=== PATIENT | male | born 1960 | race Caucasian/White ===

== ENCOUNTER 2017-07-11 12:07 | Observation (INO) ==
[2017-07-11] MEDS ORDERED: Ipratropium/Albuterol Neb 3 ML IH ONE ×2 (12:32→12:34)
--- NOTE | 2017-07-11 12:32 | Emergency Department Note ---
Disposition Clinical Impression: Shortness of breath Disposition: Admitted As Inpatient Condition: Fair Instructions: Dyspnea (ED) Referrals: NONE,PCP [Primary Care Provider] - Time of Disposition: 14:00 SOB HPI - General Stated Complaint: Shortness of breath Time Seen by Provider: 07/11/17 12:20 Source: patient, EMS Limitations: no limitations Nursing Notes Reviewed: Yes Vital Signs Reviewed: Yes - History of Present Illness 3 weeks ago Mr. Morales received Levaquin for some sinus symptoms by his family doctor. It cleared up but for the last week or so he has had a productive cough and progressive shortness of breath. He quit smoking 5 years ago on COPD was diagnosed. He is on 4 L of oxygen at home all the time. No fever no chills. He does have a lot of fatigue. No nausea no vomiting or diarrhea. By mouth intake is normal. He does not feel as though his legs of swollen any more than usual. He felt better after the DuoNeb during the squad ride to [facility]. - Related Data Home Medications Medication Instructions Recorded Confirmed Amiodarone [Cordarone] 200 mg PO DAILY 04/03/15 07/11/17 Atorvastatin Calcium [Lipitor] 80 mg PO DAILY 04/03/15 07/11/17 Fluticasone Propionate Nasal 50 mcg NS DAILY 04/03/15 07/11/17 [Flonase] Multivitamin/Ferrous Sulfate 1 tab PO DAILY 04/03/15 07/11/17 [One-Daily Cpona-Rnz-Ugxw Tab] Fluticasone/Salmeterol [Advair Hfa 1 puff IH BID 04/04/16 07/11/17 45-21 Mcg Inhaler] Potassium Chloride [Klor-Con 10] 20 meq PO DAILY 04/04/16 07/11/17 Warfarin [Coumadin] 5 mg PO MOTUWETHFRSA 04/04/16 07/11/17 Warfarin [Coumadin] 7.5 mg PO DREW 06/09/16 07/11/17 Albuterol Neb [Proventil Neb] 2.5 mg IH Q6H PRN 11/11/16 07/11/17 Ammonium Lactate 1 appl TP BID 11/11/16 07/11/17 Oxygen 4 l IH AD 11/11/16 07/11/17 Furosemide [Lasix] 40 mg PO BID 07/11/17 07/11/17 Previous Rx's Medication Instructions Recorded Albuterol Neb [Proventil Neb] 2.5 mg IH Q4HR PRN 14 Days 04/06/16 vial.neb Citalopram [CeleXA] 40 mg PO DAILY #20 tablet 04/27/16 Allergies Allergy/AdvReac Type Severity Reaction Status Date / Time No Known Drug Allergies Allergy See Verified 11/11/16 11:28 Comments Constitutional: Denies: fever, chills ENT ED: Denies: congestion Cardiovascular: Reports: dyspnea on exertion. Denies: chest pain, palpitations Respiratory: Reports: cough, dyspnea, sputum production Gastrointestinal: Denies: nausea, vomiting, diarrhea Musculoskeletal: Denies: myalgia Neurological: Denies: headache Endocrine: Reports: fatigue Past Medical History - Past Medical History Medical history: Reports: atrial fibrillation, CHF, COPD, other Surgical history: Reports: pacemaker/AICD Psychiatric history: Reports: anxiety, depression - Social History Smoking Status: Former smoker Smokeless Tobacco Status: No Alcohol use: Reports: none Drug use: Reports: none Physical Exam - General Limitations: no limitations General appearance: alert, in no apparent distress - Head Head exam: atraumatic, normocephalic - Eye Eye exam: Absent: scleral icterus - ENT ENT exam: normal exam, normal oropharynx, mucous membranes moist, TM's normal bilaterally, normal external ear exam - Neck Neck exam: Present: normal inspection. Absent: lymphadenopathy - Chest Chest inspection: Present: normal inspection, symmetric chest wall rise, other ( Bilateral crackles bilateral bases do not clear with coughing) - Respiratory Respiratory exam: Present: wheezes (End expiratory wheezes bilaterally symmetrically), other (He is able to speak in full sentences). Absent: accessory muscle use - Cardiovascular Cardiovascular exam: Present: regular rate, normal rhythm, normal heart sounds. Absent: systolic murmur, diastolic murmur - Abdominal Exam Abdominal exam: Present: soft, other (Obese) - Extremities Exam Extremities exam: Present: pedal edema (Chronic erythema 1+ pitting edema bilaterally). Absent: calf tenderness (no calf Edema cord or erythema) - Neurological Exam Neurological exam: Present: alert, oriented X3 - Psychiatric Psychiatric exam: Present: normal affect, normal mood - Skin Skin exam: Present: erythema Course Vital Signs Temperature 99.1 F 07/11/17 12:14 Pulse Rate 83 07/11/17 12:14 Respiratory Rate 20 07/11/17 12:14 Blood Pressure 115/69 07/11/17 12:14 O2 Sat by Pulse Oximetry 95 07/11/17 12:14 Temperature 99.1 F 07/11/17 12:14 Pulse Rate 83 07/11/17 12:14 Respiratory Rate 20 07/11/17 12:14 Blood Pressure 115/69 07/11/17 12:14 O2 Sat by Pulse Oximetry 95 07/11/17 12:14 Oxygen Delivery Oxygen Delivery Nasal Cannula Shortness of Breath/Dyspnea - [facility] Narrative Medical decision making narrative: Shortness of breath. Chart review demonstrates similar clinical picture last October where over 10 L was diuresed. Review of most recent echocardiogram does not demonstrate terribly compromised function. He also has an element of reactive airways. He did improve after 3 DuoNeb's. He did have some hypoxia before diuresis in an additional 3 albuterol nebulized treatments into the high 80s. He did not demonstrate any respiratory distress. Saturations did rebound to the mid 90s after these measures were taken. He had 800 mL out just prior to admission. Mr. Moralse is opened to staying at [place]. I spoke with the covering hospitalist and presented the case. He accepted admission. Mr. Morales is in improved condition awaiting for transfer. Disposition known at 2 PM however quality improvement analyst exercise in lab today where chemistries were in question. I did not want to keep him here [place] if chemistries could not be obtained in this patient that I plan to diurese. Labs did return resulted and are now up and running. I did speak to Mr. Morales about possibility of intubation should his condition deteriorate. He has been intubated before and has elected to go through with this procedure if needed. - Medical Records Medical records reviewed: Yes I reviewed the patient's medical records. - Lab Data Lab results reviewed: Yes I reviewed the patient's lab results. Result diagrams: 07/11/17 12:51 07/11/17 12:51 Lab Results 07/11/17 07/11/17 07/11/17 Range/Units 12:51 12:51 12:51 WBC 7.6 (4.3-11.1) K/mcL RBC 3.97 L (4.19-5.50) M/mcL Hgb 10.4 L (12.9-16.9) g/dL Hct 36.7 L (37.5-50.1) % MCV 92.4 (83.0-100.0) fL MCH 26.2 L (28.0-33.3) pg MCHC 28.3 L (31.6-35.5) g/dL RDW 14.5 (11.5-14.5) % Plt Count 168 (140-400) K/mcL MPV 9.7 (9.4-12.4) fL Immature Gran % 0.7 (0-4) % Seg Neutrophils % 80.8 % Lymphocytes % 8.8 % Monocytes % 8.6 % Eosinophils % 0.8 % Basophils % 0.3 % Neutrophils # 6.2 (1.6-8.9) K/mcL Lymphocytes # 0.7 (0.6-4.6) K/mcL Monocytes # 0.7 (0.0-1.3) K/mcL Eosinophils # 0.1 (0.0-0.6) K/mcL Basophils # 0.0 (0.0-0.2) K/mcL PT (9.4-12.1) Seconds INR APTT (26.0-36.0) Seconds D-Dimer < 138 (0-500) ng/mLFEU Sodium 144 (136-145) mEq/L Potassium 4.2 (3.5-5.1) mEq/L Chloride 94 L (98-107) mEq/L Carbon Dioxide 47 H* (23-29) mEq/L BUN 16 (6-20) mg/dL Creatinine 0.87 (0.70-1.30) mg/dL Est GFR ( Amer) > 60 (> 60) Est GFR (Non-Af Amer) > 60 (> 60) BUN/Creatinine Ratio 18 (6-26) Glucose 105 (70-105) mg/dL Calculated Osmolality 300 (280-300) Calcium 8.8 (8.6-10.3) mg/dL Magnesium 2.2 (1.6-2.6) mg/dL Total Bilirubin 0.6 (0.3-1.0) mg/dL AST 20 (13-39) Units/L ALT 18 (7-52) Units/L Alkaline Phosphatase 81 (34-104) Units/L Troponin I (< 0.04) ng/mL B-Natriuretic Peptide (Less than 100) pg/mL Serum Total Protein 6.3 L (6.4-8.9) g/dL Albumin 3.2 L (3.5-5.7) g/dL Globulin 3.1 (2.4-3.5) g/dL Albumin/Globulin Ratio 1.0 L (1.1-2.2) 07/11/17 07/11/17 07/11/17 Range/Units 12:51 12:51 12:59 WBC (4.3-11.1) K/mcL RBC (4.19-5.50) M/mcL Hgb (12.9-16.9) g/dL Hct (37.5-50.1) % MCV (83.0-100.0) fL MCH (28.0-33.3) pg MCHC (31.6-35.5) g/dL RDW (11.5-14.5) % Plt Count (140-400) K/mcL MPV (9.4-12.4) fL Immature Gran % (0-4) % Seg Neutrophils % % Lymphocytes % % Monocytes % % Eosinophils % % Basophils % % Neutrophils # (1.6-8.9) K/mcL Lymphocytes # (0.6-4.6) K/mcL Monocytes # (0.0-1.3) K/mcL Eosinophils # (0.0-0.6) K/mcL Basophils # (0.0-0.2) K/mcL PT 24.2 H (9.4-12.1) Seconds INR 2.2 APTT 41.4 H (26.0-36.0) Seconds D-Dimer (0-500) ng/mLFEU Sodium (136-145) mEq/L Potassium (3.5-5.1) mEq/L Chloride (98-107) mEq/L Carbon Dioxide (23-29) mEq/L BUN (6-20) mg/dL Creatinine (0.70-1.30) mg/dL Est GFR ( Amer) (> 60) Est GFR (Non-Af Amer) (> 60) BUN/Creatinine Ratio (6-26) Glucose (70-105) mg/dL Calculated Osmolality (280-300) Calcium (8.6-10.3) mg/dL Magnesium (1.6-2.6) mg/dL Total Bilirubin (0.3-1.0) mg/dL AST (13-39) Units/L ALT (7-52) Units/L Alkaline Phosphatase (34-104) Units/L Troponin I < 0.03 (< 0.04) ng/mL B-Natriuretic Peptide 49 (Less than 100) pg/mL Serum Total Protein (6.4-8.9) g/dL Albumin (3.5-5.7) g/dL Globulin (2.4-3.5) g/dL Albumin/Globulin Ratio (1.1-2.2) - Radiology Data Radiology results reviewed: Yes I reviewed the patient's radiology results. - EKG Data EKG attestation: Yes I reviewed and interpreted this EKG. EKG results narrative: EKG as interpreted by me paced rhythm 83 beats per minutes. There are Q waves in V1 and V2. No T-wave abnormalities. No ST elevations or depressions. No evidence of hypertrophy. EKG is similar appearance to October 2016.
[2017-07-11] MEDS ORDERED: Furosemide 40 MG/4 ML VIAL IVP ONE ×2 (12:57→13:57)
[2017-07-11 13:19] LABS: Basophils % 0.3 %; Eosinophils # 0.1 K/mcL (0.0-0.6); Eosinophils % 0.8 %; Hematocrit 36.7 % (37.5-50.1); Hemoglobin 10.4 g/dL (12.9-16.9); Immature Granulocytes % 0.7 % (0-4); Lymphocytes # 0.7 K/mcL (0.6-4.6); Lymphocytes % 8.8 %; Mean Corpuscular HGB Conc 28.3 g/dL (31.6-35.5); Mean Corpuscular Hemoglobin 26.2 pg (28.0-33.3); Mean Corpuscular Volume 92.4 fL (83.0-100.0); Mean Platelet Volume 9.7 fL (9.4-12.4); Monocytes # 0.7 K/mcL (0.0-1.3); Monocytes % 8.6 %; Neutrophils # 6.2 K/mcL (1.6-8.9); Platelet Count 168 K/mcL (140-400); Red Blood Count 3.97 M/mcL (4.19-5.50); Red Cell Distribution Width 14.5 % (11.5-14.5); Segmented Neutrophils % 80.8 %
[2017-07-11 14:20] LABS: INR 2.2; Prothrombin Time 24.2 Seconds (9.4-12.1)
[2017-07-11] MEDS ORDERED: Albuterol 2.5 MG/3 ML NEBULIZER IH ONE ×3 (14:20→14:21)
[2017-07-11 14:22] LABS: Activated Partial Thrombo Time 41.4 Seconds (26.0-36.0)
[2017-07-11 14:59] LABS: Alanine Aminotransferase 18 Units/L (7-52); Albumin 3.2 g/dL (3.5-5.7); Alkaline Phosphatase 81 Units/L (34-104); Aspartate Amino Transferase 20 Units/L (13-39); BUN/Creatinine Ratio 18 (6-26); Bilirubin,Total 0.6 mg/dL (0.3-1.0); Blood Urea Nitrogen 16 mg/dL (6-20); Calcium 8.8 mg/dL (8.6-10.3); Carbon Dioxide 47 mEq/L (23-29); Chloride 94 mEq/L (98-107); Globulin 3.1 g/dL (2.4-3.5); Glucose 105 mg/dL (70-105); Magnesium 2.2 mg/dL (1.6-2.6); Osmolality,Calculated 300 (280-300); Potassium 4.2 mEq/L (3.5-5.1); Sodium 144 mEq/L (136-145); Total Protein 6.3 g/dL (6.4-8.9); eGFR For Non-African Americans > 60 (> 60)
[2017-07-11] MEDS ORDERED: *HR* Warfarin 5 MG TABLET PO SCH (15:47)
[2017-07-11] MEDS ORDERED: Albuterol 2.5 MG/3 ML NEBULIZER IH PRN (15:47)
[2017-07-11] MEDS ORDERED: Naloxone 0.4 MG/ML INJ IVP PRN (15:47)
[2017-07-11] MEDS ORDERED: NON-FORMULARY MEDICATION 1 EACH EACH (Oxygen [Oxygen] 4 L) IH SCH (15:47)
[2017-07-11] MEDS ORDERED: D5% in Water 1,000 ML IVC PRN (17:13)
[2017-07-11] MEDS ORDERED: *HR* Dextrose 50 % in Water (Syg) 50 ML SYRINGE IVP PRN (17:13)
[2017-07-11] MEDS ORDERED: Dextrose Gel 15 GM/37.5 ML TUBE PO PRN ×2 (17:13)
[2017-07-11] MEDS: Furosemide 40 MG/4 ML VIAL IVP SCH ×2 (17:38→22:12)
[2017-07-11] MEDS: Ipratropium Neb 0.5 MG NEBULIZER IH SCH ×3 (17:39→22:13)
[2017-07-11] MEDS: *HR* Warfarin 5 MG TABLET PO SCH (17:43)
[2017-07-11] MEDS: Ammonium Lactate 30 APPL/225 GM BOTTLE TP SCH (22:11)
[2017-07-11] MEDS: Insulin LISPRO 300 UNITS/3 ML VIAL SQ SCH (22:12)
[2017-07-12] MEDS: methylPREDNISolone 125 MG/2 ML VIAL IVP SCH ×3 (00:14→17:36)
[2017-07-12 05:46] LABS: Basophils % 0.2 %; Hematocrit 39.3 % (37.5-50.1); Hemoglobin 11.3 g/dL (12.9-16.9); Lymphocytes # 0.5 K/mcL (0.6-4.6); Lymphocytes % 8.4 %; Mean Corpuscular HGB Conc 28.8 g/dL (31.6-35.5); Mean Corpuscular Hemoglobin 26.5 pg (28.0-33.3); Mean Platelet Volume 9.3 fL (9.4-12.4); Monocytes # 0.2 K/mcL (0.0-1.3); Monocytes % 3.2 %; Neutrophils # 5.1 K/mcL (1.6-8.9); Platelet Count 167 K/mcL (140-400); Red Blood Count 4.27 M/mcL (4.19-5.50); Red Cell Distribution Width 14.4 % (11.5-14.5); Segmented Neutrophils % 87.2 %
[2017-07-12 05:47] LABS: INR 2.5; Prothrombin Time 27.1 Seconds (9.4-12.1)
[2017-07-12] MEDS: Furosemide 40 MG/4 ML VIAL IVP SCH ×4 (06:10→22:16)
[2017-07-12 06:11] LABS: BUN/Creatinine Ratio 21 (6-26); Blood Urea Nitrogen 18 mg/dL (6-20); Calcium 9.1 mg/dL (8.6-10.3); Chloride 89 mEq/L (98-107); Glucose 156 mg/dL (70-105); Osmolality,Calculated 303 (280-300); Potassium 4.7 mEq/L (3.5-5.1); Sodium 144 mEq/L (136-145); eGFR For Non-African Americans > 60 (> 60)
[2017-07-12] MEDS: Ipratropium Neb 0.5 MG NEBULIZER IH SCH ×5 (06:11→22:21)
[2017-07-12 06:14] LABS: Carbon Dioxide 52 mEq/L (23-29)
[2017-07-12 07:46] LABS: ABG Base Excess 19 mEq/L (-2 to 3); ABG HCO3 50 mEq/L (21-27); ABG Oxygen Saturation 92 % (95-98); ABG PCO2 94 mmHg (35-45); ABG PH 7.33 pH Units (7.32-7.45); ABG PO2 76 mmHg (85-104); ABG TCO2 52 mEq/L (20-26)
[2017-07-12] MEDS: Insulin LISPRO 300 UNITS/3 ML VIAL SQ SCH ×4 (08:54→22:22)
--- NOTE | 2017-07-12 09:39 | Internal Med History&Physical ---
Date of Encounter: 07/12/17 Time of Encounter: 09:36 Assessment and Plan (1) Acute exacerbation of chronic obstructive airways disease Current visit: No Status: Resolved I believe that this is his primary problem and that he should be treated with steroids, given the severity of his chronic problem. I also think he should be maintained on antibiotics for Community-Acquired Pneumonia. (2) CHF (congestive heart failure) Current visit: No Status: Chronic His BNP is normal and clinically, he's been compliant with his medications. I believe this is controlled and not a major contributor to his current COPD exacerbation. Qualifiers: Heart failure type: combined systolic and diastolic Qualified Code(s): I50.42 - Chronic combined systolic (congestive) and diastolic (congestive) heart failure (3) Atrial fibrillation Current visit: No Status: Chronic In sinus rhythm to exam and telemetry. Will monitor for 24 hours more and consider discontinuation of telemetry, tomorrow. He's on chronic Coumadin therapy for same. PT/INR therapeutic Qualifiers: Atrial fibrillation type: chronic Qualified Code(s): I48.2 - Chronic atrial fibrillation (4) GITA (obstructive sleep apnea) Current visit: No Status: Chronic I spoke with brian at great length about the long-term effects (including ) of not caring for this. I explained the difficulties with tolerating this and the need to optimize treatment vs. risk of hypercarbia, respiratory or heart failure, intubation and tracheostomy, etc. He accepts and agrees to try again. I tried to motivate him with feeling better, longer life for , children, grandchildren. (5) Morbid obesity due to excess calories Current visit: No Status: Chronic He understands contribution of this problem, as well. (6) Respiratory acidosis Current visit: No Status: Acute Chronic and compensated. We will try to avoid progression and could consider metabolic therapy but I feel CPAP/ BiPAP treatment to curtail hypercapnia is best. Internal Medicine - H&P: HPI Chief complaint: Cough Admitted From: Home Plans for Post Hospital Care: Home History of present illness: Mr. Morales is a 56 year old male with a longstanding history of COPD with chronic oxygen therapy, CO2 retention, non-compliance with BiPAP for GITA, congestive heart failure, and atrial fibrillation who was in his usual state of health until aboiut two weeks ago when he began to have more sinus congestion and cough. This progressed and he was prescribed an unknown antibiotic by his PCP (Dr. Medellin, [place]). He continued to have worsening cough and shortness of breath. Yesterday, this cough become more frequent, he bagan to produce light-green phlegm, and he had more dyspnea. He presented to [facility] ED and was felt to have a COPD exacerbation with CHF by CXR so he was admitted for acute management. He denies fevers, chills, or sweats. As above, he's had more sinus congestion and states this is typical - - he gets frequent sinus congestion and/or sinusitis. He denies pharyngitis, hemoptysis, etc. There has been no chest pain or pressure. ROS is otherwise unremarkable -- see below. He has tried to but cannot tolerate his CPAP. The best was a nasal mask but even that he couldn't keep uon at night. This is true because he gets up frequently to urinate -- he takes his diuretic medication at about 1700. Before he began to be treated with CPAP, he was reasonably thin -- he's gained lots of weight since then and since he quit smoking -- about 5 years ago. His atrial fibrillation has been well controlled with no recent episodes. Past Med Surg Social Fam HX - Past Medical History Medical history: atrial fibrillation, CHF, COPD, other Psychiatric history: anxiety, depression - Past Surgical History Surgical History: pacemaker/AICD - Social History Smoking Status: Former smoker Smokeless Tobacco Status: No Alcohol use: none Drug use: none - Family History Mother Family Member Ethnicity: Non- Living Status: Still Living Hx Family Cardiac Disorders: No Hx Family Respiratory Disorders: No Hx Family Cancer: Yes Hx Family GI Disorders: No Hx Family Endocrine Disorder: No Father Adopted: No Family Member Ethnicity: Non- Living Status: Hx Family Cancer: Yes Hx Family GI Disorders: No Internal Medicine - H&P: Meds Amiodarone [Cordarone] 200 mg PO DAILY 04/03/15 [History] Atorvastatin Calcium [Lipitor] 80 mg PO DAILY 04/03/15 [History] Fluticasone Propionate Nasal [Flonase] 50 mcg NS DAILY 04/03/15 [History] Multivitamin/Ferrous Sulfate [One-Daily Eqove-Ydd-Qdtd Tab] 1 tab PO DAILY 04/03 [History] Fluticasone/Salmeterol [Advair Hfa 45-21 Mcg Inhaler] 1 puff IH BID 04/04/16 [ History] Potassium Chloride [Klor-Con 10] 20 meq PO DAILY 04/04/16 [History] Warfarin [Coumadin] 5 mg PO MOTUWETHFRSA 04/04/16 [History] Albuterol Neb [Proventil Neb] 2.5 mg IH Q4HR PRN 14 Days vial.neb 04/06/16 [Rx] Citalopram [CeleXA] 40 mg PO DAILY #20 tablet 04/27/16 [Rx] Warfarin [Coumadin] 7.5 mg PO DREW 06/09/16 [History] Albuterol Neb [Proventil Neb] 2.5 mg IH Q6H PRN 11/11/16 [History] Ammonium Lactate 1 appl TP BID 11/11/16 [History] Oxygen 4 l IH AD 11/11/16 [History] Furosemide [Lasix] 40 mg PO BID 07/11/17 [History] 3 Allergy/AdvReac Type Severity Reaction Status Date / Time No Known Drug Allergies Allergy See Verified 11/11/16 11:28 Comments All Systems PM: A 10-system review of systems was performed and is negative for pertinent findings except as documented above in the HPI. - Constitutional Vitals: Temp Pulse Resp BP Pulse Ox 97.9 F 70 16 142/74 95 07/12/17 07:37 07/12/17 07:37 07/12/17 07:37 07/12/17 07:37 07/12/17 07:37 General appearance: Present: A&O X 3, morbidly obese, no acute distress, answers questions appropriately Exam: Eating lunch and shows no difficulty with speaking or eating -- on Oxygen by nasal cannula. - Head Head exam: Present: atraumatic, normal inspection, normocephalic - Eye Eye exam: Present: EOMI, PERRL. Absent: conjunctival injection, nystagmus, scleral icterus Pupils: Present: normal accommodation - ENT ENT exam: Present: mucous membranes moist, normal exam, normal external ear exam , normal oropharynx - Neck Neck exam general surgery: Present: full ROM, normal inspection, supple, trachea midline. Absent: lymphadenopathy, thyromegaly - Respiratory Respiratory exam: Present: wheezes. Absent: accessory muscle use Additional comments: End-expiratory wheezes, diffusely and mild. - Cardiovascular Cardiovascular exam: Present: RRR. Absent: systolic murmur Additional comments: Distant heart sounds. - GI/Abdominal GI/Abdominal exam: Present: normal bowel sounds, soft. Absent: bruit, hepatomegaly, mass, splenomegaly, tenderness Additional comments: Morbidly obese and therefore difficult to alpate briefly. Examined in chair, as well. - Additional comments: Sebastian catheter in place. Not otherwise examined. - Extremities Exam Extremities exam: Present: normal capillary refill. Absent: calf tenderness, mottling Additional comments: Has mild viiolaceous change and 1+ edema consistent with chronic stasis change, bilaterally. - Back Exam Back exam: Absent: CVA tenderness (L), CVA tenderness (R) - Neurological Exam Neurological exam: Present: CN II-XII intact, oriented X3, no focal deficits. Absent: facial droop, speech deficit - Psychiatric Psychiatric exam: Present: normal affect, normal mood - Skin Skin exam: Present: dry, warm. Absent: petechiae, rash Internal Med - H&P Results - Labs CBC & Chem 7: 07/12/17 05:25 07/12/17 05:25 Labs: Short CBC 07/12/17 Range/Units 05:25 WBC 5.9 (4.3-11.1) K/mcL Hgb 11.3 L (12.9-16.9) g/dL Hct 39.3 (37.5-50.1) % Plt Count 167 (140-400) K/mcL Neutrophils # 5.1 (1.6-8.9) K/mcL BMP 07/12/17 05:25 Sodium 144 Potassium 4.7 Chloride 89 L Carbon Dioxide 52 H* BUN 18 Creatinine 0.86 Glucose 156 H Calcium 9.1 Cardiac Enzymes 07/11/17 07/12/17 Range/Units 19:10 00:55 Troponin I < 0.03 < 0.03 (< 0.04) ng/mL - ABG Interpretation ABG results: 07/12/17 07/12/17 07:22 07:40 ABG pH 7.22 L 7.33 ABG pCO2 124 H* 94 H* D ABG pO2 66 L 76 L ABG HCO3 51 H 50 H ABG Total CO2 55 H 52 H ABG O2 Saturation 85 L 92 L ABG Base Excess 18 H 19 H - VTE Reasons for not Prescribing Prophylaxis: Not indicated-Anticoagulated or INR therapeutic
[2017-07-12] MEDS: Ammonium Lactate 30 APPL/225 GM BOTTLE TP SCH ×2 (09:40→22:21)
[2017-07-12] MEDS: *HR* Amiodarone 200 MG TABLET PO SCH (09:40)
[2017-07-12] MEDS: Fluticasone Propionate Nasal 50 MCG/SPRAY BOTTLE NS SCH (09:41)
[2017-07-12] MEDS: *HR* Warfarin 5 MG TABLET PO SCH (17:37)
[2017-07-13] MEDS: methylPREDNISolone 125 MG/2 ML VIAL IVP SCH ×4 (00:06→23:37)
[2017-07-13] MEDS: Ipratropium Neb 0.5 MG NEBULIZER IH SCH ×7 (00:06→23:37)
[2017-07-13] MEDS: Furosemide 40 MG/4 ML VIAL IVP SCH ×3 (04:24→17:36)
[2017-07-13 07:02] LABS: INR 3.3; Prothrombin Time 36.7 Seconds (9.4-12.1)
[2017-07-13] MEDS: Insulin LISPRO 300 UNITS/3 ML VIAL SQ SCH ×4 (10:15→21:28)
[2017-07-13] MEDS: *HR* Amiodarone 200 MG TABLET PO SCH (10:15)
[2017-07-13] MEDS: Fluticasone Propionate Nasal 50 MCG/SPRAY BOTTLE NS SCH (10:15)
[2017-07-13] MEDS: Ammonium Lactate 30 APPL/225 GM BOTTLE TP SCH ×2 (11:41→21:33)
--- NOTE | 2017-07-13 16:00 | Internal Med Progress Note ---
Date of Encounter: 07/14/17 Time of Encounter: 16:00 - Assessment and plan (1) CHF (congestive heart failure) Current Visit: No Status: Chronic Assessment and plan: Seems clinically stable. Will follow and plan to discharge if oxygenation remains acceptable and he's otherwise stable. Qualifiers: Heart failure type: combined systolic and diastolic Qualified Code(s): I50.40 - Unspecified combined systolic (congestive) and diastolic (congestive) heart failure (2) Atrial fibrillation Current Visit: No Status: Chronic Assessment and plan: Stable and in normal sinus rhythm. Will discontinue telemetry. Qualifiers: Atrial fibrillation type: chronic Qualified Code(s): I48.2 - Chronic atrial fibrillation (3) GITA (obstructive sleep apnea) Current Visit: No Status: Chronic Assessment and plan: Seems to understand and accept the importance of wearing his BiPAP. Will investigate comfort and follow up instructions upon discharge. (4) Morbid obesity due to excess calories Current Visit: No Status: Chronic Assessment and plan: Stable. (5) Respiratory acidosis Current Visit: No Status: Acute Assessment and plan: Will follow with BMP tomorrow and consider repeat ABG. - Time Spent With Patient 25 - 35 minutes - Subjective Interval history: He's feeling pretty well -- back to his baseline. ROS unremarkable. Breathing is normal, for him. He tolerated his mask reasonably well but has a very dry throat when wearing it. Discussed with nursing: Will moisturized O2 but they're not certain about how to moisturize BiPAP. Will investigate with respiratory, tomorrow. Of note, he' s tolerated BiPAP for about 5 hours last night. - Constitutional Vitals: Temp Pulse Resp BP Pulse Ox 98.0 F 108 14 131/77 93 07/13/17 12:00 07/13/17 12:00 07/13/17 12:00 07/13/17 12:00 07/13/17 12:00 General appearance: Present: A&O X 3, morbidly obese, no acute distress, answers questions appropriately - Head Head exam: Present: atraumatic, normal inspection, normocephalic - Respiratory Respiratory exam: Present: CTAB. Absent: accessory muscle use, rales, respiratory distress - Cardiovascular Cardiovascular exam: Present: RRR. Absent: systolic murmur Additional comments: Distant heart tones. - GI/Abdominal GI/Abdominal exam: Present: normal bowel sounds, soft. Absent: hepatomegaly, mass, splenomegaly, tenderness Additional comments: Morbidly obese and therefore difficult to palpate, deeply. - Extremities Exam Extremities exam: Present: normal capillary refill. Absent: calf tenderness, pedal edema Additional comments: Chronic stasis changes as previously noted. Internal Medicine: Result - Labs CBC & Chem 7: 07/12/17 05:25 07/12/17 05:25 - ABG Interpretation ABG results: ABG ABG pH 7.33 pH Units (7.32-7.45) 07/12/17 07:40 ABG pCO2 94 mmHg (35-45) H* 07/12/17 07:40 ABG pO2 76 mmHg (85-104) L 07/12/17 07:40 ABG O2 Saturation 92 % (95-98) L 07/12/17 07:40 PT/INR, D-dimer PT 36.7 Seconds (9.4-12.1) H 07/13/17 06:40 D-Dimer < 138 ng/mLFEU (0-500) 07/11/17 12:51 - VTE Reasons for not Prescribing Prophylaxis: Not indicated-Anticoagulated or INR therapeutic Consult Discharge Plan - Plan Referrals: NONE,PCP [Primary Care Provider] -
[2017-07-13] MEDS: Furosemide 20 MG/2 ML VIAL IVP SCH ×2 (17:14→23:37)
[2017-07-13] MEDS ORDERED: *HR* Warfarin 7.5 MG TABLET PO SCH (18:00)
[2017-07-13] MEDS ORDERED: hydrOXYzine pamoate 25 MG CAPSULE PO ONE (23:26)
[2017-07-13] MEDS: hydrOXYzine pamoate 25 MG CAPSULE PO PRN (23:36)
[2017-07-14] MEDS: Furosemide 20 MG/2 ML VIAL IVP SCH ×2 (04:33→11:03)
[2017-07-14] MEDS: Ipratropium Neb 0.5 MG NEBULIZER IH SCH ×5 (04:33→21:32)
[2017-07-14] MEDS: Insulin LISPRO 300 UNITS/3 ML VIAL SQ SCH ×4 (08:00→21:32)
[2017-07-14 09:54] LABS: INR 2.9; Prothrombin Time 32.1 Seconds (9.4-12.1)
[2017-07-14 10:04] LABS: Basophils % 0.1 %; Hematocrit 40.7 % (37.5-50.1); Hemoglobin 11.9 g/dL (12.9-16.9); Immature Granulocytes % 0.7 % (0-4); Lymphocytes # 0.6 K/mcL (0.6-4.6); Lymphocytes % 6.1 %; Mean Corpuscular HGB Conc 29.2 g/dL (31.6-35.5); Mean Corpuscular Hemoglobin 26.3 pg (28.0-33.3); Mean Platelet Volume 9.2 fL (9.4-12.4); Monocytes # 0.8 K/mcL (0.0-1.3); Monocytes % 7.8 %; Neutrophils # 8.6 K/mcL (1.6-8.9); Platelet Count 236 K/mcL (140-400); Red Blood Count 4.52 M/mcL (4.19-5.50); Red Cell Distribution Width 13.7 % (11.5-14.5); Segmented Neutrophils % 85.3 %
[2017-07-14] MEDS: *HR* Amiodarone 200 MG TABLET PO SCH (11:01)
[2017-07-14] MEDS: methylPREDNISolone 125 MG/2 ML VIAL IVP SCH (11:02)
[2017-07-14] MEDS: Fluticasone Propionate Nasal 50 MCG/SPRAY BOTTLE NS SCH (11:02)
[2017-07-14] MEDS: Ammonium Lactate 30 APPL/225 GM BOTTLE TP SCH ×2 (11:03→21:31)
[2017-07-14 11:15] LABS: BUN/Creatinine Ratio 30 (6-26); Blood Urea Nitrogen 28 mg/dL (6-20); Calcium 9.1 mg/dL (8.6-10.3); Chloride 82 mEq/L (98-107); Glucose 186 mg/dL (70-105); Osmolality,Calculated 302 (280-300); Potassium 5.7 mEq/L (3.5-5.1); Sodium 141 mEq/L (136-145); eGFR For Non-African Americans > 60 (> 60)
[2017-07-14 11:23] LABS: Carbon Dioxide 59 mEq/L (23-29)
--- NOTE | 2017-07-14 12:36 | Internal Med Progress Note ---
Date of Encounter: 07/14/17 Time of Encounter: 12:34 - Assessment and plan (1) Acute exacerbation of chronic obstructive airways disease Current Visit: Yes Status: Acute Assessment and plan: Patient's respiratory effort has improved over the past 2 days. Lungs are currently clear, with no wheezes, but diminished at bases. No hypoxia. Respiratory effort appears relaxed. Today's labs show patient's bicarbonate at 59, likely secondary to use of diuretics. We will decrease patient's current Lasix dosing and recheck labs in the morning. We will continue with current cortical steroids and bronchodilators. (2) CHF (congestive heart failure) Current Visit: Yes Status: Chronic Assessment and plan: No acute issues. Respiratory effort has improved. Patient currently appears clinically dry on labs. Lasix has been decreased and we will re-evaluate in the morning. 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 Patient's glucose currently has been well controlled with current SSI. We will continue with current medications Qualifiers: Diabetes mellitus type: type 2 Diabetes mellitus complication status: with unspecified complications Diabetes mellitus halfway insulin use: with house director use Qualified Code(s): E11.8 - Type 2 diabetes mellitus with unspecified complications; Z79.4 - nursing care attendant (current) use of insulin; Z79.4 - jail ( current) use of insulin; Z79.4 - nursing care attendant (current) use of insulin; Z79.4 - nursing care attendant (current) use of insulin - Time Spent With Patient less than 15 minutes - Subjective Interval history: Patient appears relaxed and denies any current shortness of breath or productive cough. Patient states that he feels his respiratory effort has greatly improved. Denies any chest discomfort patient's. - Constitutional Vitals: Temp Pulse Resp BP Pulse Ox 97.4 F L 73 16 133/78 95 07/14/17 04:00 07/14/17 04:00 07/14/17 04:00 07/14/17 04:00 07/14/17 04:00 General appearance: Present: A&O X 3, morbidly obese, no acute distress, answers questions appropriately - Head Head exam: Present: atraumatic, normocephalic - Eye Eye exam: Present: PERRL, conjuntiva pink, sclera anicteric Pupils: Present: PERRL - Neck Neck exam general surgery: Present: supple, trachea midline. Absent: lymphadenopathy - Respiratory Respiratory exam: Present: CTAB. Absent: accessory muscle use, rales, rhonchi, wheezes Additional comments: Lungs are clear throughout upper pills and diminished at bases. Respiratory effort appears relaxed - Cardiovascular Cardiovascular exam: Present: RRR, +S1, +S2. Absent: diastolic murmur, gallop, rubs, systolic murmur - GI/Abdominal GI/Abdominal exam: Present: normal bowel sounds, soft, no peritoneal signs. Absent: distended, tenderness - Extremities Exam Extremities exam: Present: warm, radial pulses palpable and symmetrical. Absent : calf tenderness, cyanotic, pedal edema - Neurological Exam Neurological exam: Present: CN II-XII intact, oriented X3, no focal deficits. Absent: pronater drift, facial droop, speech deficit - Skin Skin exam: Present: dry, intact Internal Medicine: Result - Labs CBC & Chem 7: 07/14/17 09:50 07/14/17 09:50 Labs: Short CBC 07/14/17 Range/Units 09:50 WBC 10.1 D (4.3-11.1) K/mcL Hgb 11.9 L (12.9-16.9) g/dL Hct 40.7 (37.5-50.1) % Plt Count 236 (140-400) K/mcL Neutrophils # 8.6 (1.6-8.9) K/mcL BMP 07/14/17 09:50 Sodium 141 Potassium 5.7 H Chloride 82 L Carbon Dioxide 59 H* BUN 28 H Creatinine 0.92 Glucose 186 H Calcium 9.1 - ABG Interpretation ABG results: ABG ABG pH 7.33 pH Units (7.32-7.45) 07/12/17 07:40 ABG pCO2 94 mmHg (35-45) H* 07/12/17 07:40 ABG pO2 76 mmHg (85-104) L 07/12/17 07:40 ABG O2 Saturation 92 % (95-98) L 07/12/17 07:40 PT/INR, D-dimer PT 32.1 Seconds (9.4-12.1) H 07/14/17 06:54 D-Dimer < 138 ng/mLFEU (0-500) 07/11/17 12:51 - VTE Reasons for not Prescribing Prophylaxis: Not indicated-Anticoagulated or INR therapeutic Consult Discharge Plan - Plan Referrals: NONE,PCP [Primary Care Provider] -
--- NOTE | 2017-07-14 16:07 | Electrocardiograph Report ---
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
[2017-07-14] MEDS: *HR* Warfarin 5 MG TABLET PO SCH (17:48)
[2017-07-14] MEDS: hydrOXYzine pamoate 25 MG CAPSULE PO PRN (21:32)
[2017-07-15] MEDS ORDERED: hydrOXYzine pamoate 25 MG CAPSULE PO PRN (00:09)
[2017-07-15] MEDS: Ipratropium Neb 0.5 MG NEBULIZER IH SCH ×4 (00:24→11:30)
[2017-07-15] MEDS: Insulin LISPRO 300 UNITS/3 ML VIAL SQ SCH ×2 (07:37→11:31)
[2017-07-15] MEDS ORDERED: Furosemide 40 MG TABLET PO SCH (09:00)
[2017-07-15] MEDS ORDERED: predniSONE 10 MG TABLET PO SCH (09:00)
[2017-07-15] MEDS: *HR* Amiodarone 200 MG TABLET PO SCH (09:03)
[2017-07-15] MEDS: Ammonium Lactate 30 APPL/225 GM BOTTLE TP SCH (09:04)
[2017-07-15] MEDS: Fluticasone Propionate Nasal 50 MCG/SPRAY BOTTLE NS SCH (09:04)
[2017-07-15 11:35] VITALS: BP 128/72
[2017-07-15 12:49] LABS: BUN/Creatinine Ratio 39 (6-26); Blood Urea Nitrogen 32 mg/dL (6-20); Calcium 9.3 mg/dL (8.6-10.3); Carbon Dioxide 52 mEq/L (23-29); Chloride 83 mEq/L (98-107); Glucose 119 mg/dL (70-105); Osmolality,Calculated 294 (280-300); Potassium 3.8 mEq/L (3.5-5.1); Sodium 138 mEq/L (136-145); eGFR For Non-African Americans > 60 (> 60)
--- NOTE | 2017-07-15 13:14 | Internal Med Progress Note ---
Date of Encounter: 07/15/17 Time of Encounter: 13:11 - Assessment and plan (1) Acute exacerbation of chronic obstructive airways disease Current Visit: Yes Status: Acute Assessment and plan: Patient's respiratory effort has improved over the past 2 days. Lungs are currently clear, with no wheezes, but diminished at bases. No hypoxia. Respiratory effort appears relaxed. Today's labs show patient's bicarbonate at 52, likely secondary to use of diuretics. We will continue with current prednisone and bronchodilators. (2) CHF (congestive heart failure) Current Visit: Yes Status: Chronic Assessment and plan: No acute issues. Respiratory effort has improved. Qualifiers: Heart failure type: combined systolic and diastolic Heart failure chronicity: chronic Qualified Code(s): I50.42 - Chronic combined systolic ( congestive) and diastolic (congestive) heart failure (3) Atrial fibrillation Current Visit: No Status: Chronic Assessment and plan: rate and rythm stable. continue coumadin. Qualifiers: Atrial fibrillation type: chronic Qualified Code(s): I48.2 - Chronic atrial fibrillation - Time Spent With Patient 25 - 35 minutes - Subjective Interval history: pt asking to go home, denies SOB or dyspnea. continues to have cough. denies fever, chills, NVD> - Constitutional Vitals: Temp Pulse Resp BP Pulse Ox 98.0 F 68 16 128/72 94 07/15/17 11:34 07/15/17 11:34 07/15/17 11:34 07/15/17 11:34 07/15/17 11:34 General appearance: Present: A&O X 3, morbidly obese, no acute distress, obese, answers questions appropriately - Head Head exam: Present: atraumatic, normocephalic - Eye Eye exam: Present: PERRL, conjuntiva pink, sclera anicteric Pupils: Present: PERRL - Neck Neck exam general surgery: Present: supple, trachea midline. Absent: lymphadenopathy - Respiratory Respiratory exam: Present: CTAB. Absent: accessory muscle use, rales, rhonchi, wheezes Additional comments: diminished in bases. - Cardiovascular Cardiovascular exam: Present: RRR, +S1, +S2. Absent: diastolic murmur, gallop, rubs, systolic murmur - GI/Abdominal GI/Abdominal exam: Present: normal bowel sounds, soft, no peritoneal signs. Absent: distended, tenderness - Extremities Exam Extremities exam: Present: warm, radial pulses palpable and symmetrical. Absent : calf tenderness, cyanotic, pedal edema - Neurological Exam Neurological exam: Present: CN II-XII intact, oriented X3, no focal deficits. Absent: pronater drift, facial droop, speech deficit - Skin Skin exam: Present: dry, intact Internal Medicine: Result - Labs CBC & Chem 7: 07/14/17 09:50 07/15/17 11:56 Labs: BMP 07/15/17 11:56 Sodium 138 Potassium 3.8 Chloride 83 L Carbon Dioxide 52 H* BUN 32 H Creatinine 0.82 Glucose 119 H Calcium 9.3 - ABG Interpretation ABG results: ABG ABG pH 7.33 pH Units (7.32-7.45) 07/12/17 07:40 ABG pCO2 94 mmHg (35-45) H* 07/12/17 07:40 ABG pO2 76 mmHg (85-104) L 07/12/17 07:40 ABG O2 Saturation 92 % (95-98) L 07/12/17 07:40 PT/INR, D-dimer PT 32.1 Seconds (9.4-12.1) H 07/14/17 06:54 D-Dimer < 138 ng/mLFEU (0-500) 07/11/17 12:51 - VTE Reasons for not Prescribing Prophylaxis: Not indicated-Anticoagulated or INR therapeutic Consult Discharge Plan - Plan Additional Instructions: Follow-up appointments: If there is not an appointment listed below, please call your physician and schedule a follow-up appointment. If you have congestive heart failure and your symptoms return, make an appointment with your physician. Medication List: Carry an up to date list of medications you are taking at all time. We have given you an updated medication list including any new medications that you have been prescribed. Please provide that list to your primary provider Symptoms: If your condition changes or you experience any of the following symptoms, notify your physician immediately: Unusual or worsening pain, fever, persistent nausea and vomiting, bleeding, increase in swelling (especially in your legs), sudden weight gain, extreme dizziness, chest pain, increased drainage or redness from a wound or incision. Go to the emergency department if you experience a problem with breathing. Weights: If you have a history of swelling or shortness of breath, weigh yourself daily and notify your physician if you have a weight gain of two or more pounds in one day or 5 or more pounds in a week. If you experience any of the warning signs for stroke: Sudden numbness or weakness of the face, arm or leg; especially on one side of the body, sudden confusion, trouble speaking or understanding, sudden trouble seeing in one or both eyes, sudden trouble walking, dizziness, loss of balance or coordination, sudden sever headache with no cause; Call 911 or go to the emergency room. Stroke is a medical emergency. Some risk factors for stroke: Age, cigarette smoking, diabetes, excessive alcohol consumption, family history , high blood pressure, overweight, physical inactivity, prior stroke, heart attack, diagnosis of carotid artery stenosis or other artery disease. If you smoke, STOP: Smoking or tobacco use significantly increases your risk of heart and lung disease. Your chance of disease greatly increases if you continue to smoke. For more information, call the [place] tobacco quit line for smoking cessation -NOW ( ) Referrals: sarah sinclair [Other] NONE,PCP [Primary Care Provider] -
--- NOTE | 2017-07-15 14:03 | Discharge Summary ---
Date of Encounter: 07/15/17 Time of Encounter: 13:57 - Discharge Diagnosis (1) Acute exacerbation of chronic obstructive airways disease Priority: Primary Status: Acute (2) CHF (congestive heart failure) Priority: Primary Status: Chronic Comments: improved. continue lasix. BMP friday, f/u with PCP Qualifiers: Heart failure type: combined systolic and diastolic Heart failure chronicity: chronic Qualified Code(s): I50.42 - Chronic combined systolic ( congestive) and diastolic (congestive) heart failure (3) Atrial fibrillation Priority: Primary Status: Chronic Comments: rate and rythm stable. continue coumadin. Qualifiers: Atrial fibrillation type: chronic Qualified Code(s): I48.2 - Chronic atrial fibrillation - Discharge Medications Home Medications: Amiodarone [Cordarone] 200 mg PO DAILY 04/03/15 [History] Atorvastatin Calcium [Lipitor] 80 mg PO DAILY 04/03/15 [History] Fluticasone Propionate Nasal [Flonase] 50 mcg NS DAILY 04/03/15 [History] Multivitamin/Ferrous Sulfate [One-Daily Nemkp-Xkm-Pbbt Tab] 1 tab PO DAILY 04/03 [History] Fluticasone/Salmeterol [Advair Hfa 45-21 Mcg Inhaler] 1 puff IH BID 04/04/16 [ History] Potassium Chloride [Klor-Con 10] 20 meq PO DAILY 04/04/16 [History] Warfarin [Coumadin] 5 mg PO [id number] 04/04/16 [History] Albuterol Neb [Proventil Neb] 2.5 mg IH Q4HR PRN 14 Days vial.neb 04/06/16 [Rx] Citalopram [CeleXA] 40 mg PO DAILY #20 tablet 04/27/16 [Rx] Warfarin [Coumadin] 7.5 mg PO DREW 06/09/16 [History] Ammonium Lactate 1 appl TP BID 11/11/16 [History] Oxygen 4 l IH AD 11/11/16 [History] Furosemide [Lasix] 40 mg PO BID 07/11/17 [History] Albuterol Neb [Proventil Neb] 2.5 mg IH Q2H PRN inhsol 07/15/17 [Rx] Insulin LISPRO [HumaLOG] 0 units SQ HS vial 07/15/17 [Rx] Ipratropium Neb [Atrovent Neb] 0.5 mg IH [id number] inhsol 07/15/17 [Rx] predniSONE [PredniSONE] 30 mg PO DAILY 5 Days #15 tablet 07/15/17 [Rx] Allergies/Adverse Reactions: 3 Allergy/AdvReac Type Severity Reaction Status Date / Time No Known Drug Allergies Allergy See Verified 11/11/16 11:28 Comments Date of admission: 07/12/17 13:16 Primary care physician: PCP NONE Discharging clinician: Anastasia Urias Anticipated date of discharge: 07/15/17 - Patient Status Disposition: Home, Self-Care Condition: Fair Overall status at discharge: patient is progressing back to baseline - Discharge Instructions Follow Up With: sarah sinclair [Other] NONE,PCP [Primary Care Provider] - Additional Instructions: Follow-up appointments: If there is not an appointment listed below, please call your physician and schedule a follow-up appointment. If you have congestive heart failure and your symptoms return, make an appointment with your physician. Medication List: Carry an up to date list of medications you are taking at all time. We have given you an updated medication list including any new medications that you have been prescribed. Please provide that list to your primary provider Symptoms: If your condition changes or you experience any of the following symptoms, notify your physician immediately: Unusual or worsening pain, fever, persistent nausea and vomiting, bleeding, increase in swelling (especially in your legs), sudden weight gain, extreme dizziness, chest pain, increased drainage or redness from a wound or incision. Go to the emergency department if you experience a problem with breathing. Weights: If you have a history of swelling or shortness of breath, weigh yourself daily and notify your physician if you have a weight gain of two or more pounds in one day or 5 or more pounds in a week. If you experience any of the warning signs for stroke: Sudden numbness or weakness of the face, arm or leg; especially on one side of the body, sudden confusion, trouble speaking or understanding, sudden trouble seeing in one or both eyes, sudden trouble walking, dizziness, loss of balance or coordination, sudden sever headache with no cause; Call 911 or go to the emergency room. Stroke is a medical emergency. Some risk factors for stroke: Age, cigarette smoking, diabetes, excessive alcohol consumption, family history , high blood pressure, overweight, physical inactivity, prior stroke, heart attack, diagnosis of carotid artery stenosis or other artery disease. If you smoke, STOP: Smoking or tobacco use significantly increases your risk of heart and lung disease. Your chance of disease greatly increases if you continue to smoke. For more information, call the [place] tobacco quit line for smoking cessation - QUIT-NOW ( ) - Diet and Activity Activity: as per physical therapy, wear oxygen at all times Diet: advance to your usual diet Interval History: CO2 improving. follow up with BMP 07/18/17 and follow up with PCP. denies SOB or dyspnea. on chronic O2 at home. Hospital course: Mr. Morales is a 56 year old male - Time Spent with Patient Total time spent providing and/or coordinating discharge services: Less than 30 minutes - Constitutional Vitals: Temp Pulse Resp BP Pulse Ox 98.0 F 68 16 128/72 94 07/15/17 11:34 07/15/17 11:34 07/15/17 11:34 07/15/17 11:34 07/15/17 11:34 General appearance: Present: A&O X 3, morbidly obese, no acute distress, obese, answers questions appropriately Exam: see exam entered in progress note, dated this date. - VTE Reasons for not Prescribing Prophylaxis: Not indicated-Anticoagulated or INR therapeutic
== END 2017-07-15 13:00 | disposition home or self-care (01) | DRG 190 ==
LOC: EMEROOGRE 12:07 → INPGRE 12:07
PROVIDERS: ADMIT Internal Medicine; ATTEND Internal Medicine

== ENCOUNTER 2017-09-22 14:34 | Observation (INO) ==
[2017-09-22 14:59] LABS: ABG Base Excess 21 mEq/L (-2 to 3); ABG HCO3 53 mEq/L (21-27); ABG Oxygen Saturation 86 % (95-98); ABG PH 7.31 pH Units (7.32-7.45); ABG PO2 61 mmHg (85-104); ABG TCO2 56 mEq/L (20-26)
[2017-09-22 15:03] LABS: ABG PCO2 106 mmHg (35-45)
--- NOTE | 2017-09-22 15:03 | Emergency Department Note ---
Disposition Clinical Impression: Acute on chronic respiratory failure with hypercapnia, Acute exacerbation of chronic obstructive airways disease CHF (congestive heart failure) Qualifiers: Heart failure type: unspecified Heart failure chronicity: acute on chronic Qualified Code(s): I50.9 - Heart failure, unspecified Disposition: Admitted As Inpatient Condition: Fair Referrals: NONE,PCP [Primary Care Provider] - Forms: ED Satisfaction Letter SOB HPI - General Chief Complaint: ED Shortness of Breath/Dyspnea Stated Complaint: copd Source: patient Mode of arrival: EMS Limitations: no limitations Nursing Notes Reviewed: Yes Vital Signs Reviewed: Yes - History of Present Illness 56-year-old male presents for evaluation of shortness of breath by EMS. Patient has a known history of COPD and CHF. He states over the last few days he has had a little bit of a runny nose and cough. States cough has been nonproductive. Y states he is also feels he has been gaining some water weight. Patient denies any current chest pain. This been no fever or chills. Patient capnometry evaluation at the scene was 100. They placed him on CPAP and gave him a breathing treatment and Solu-Medrol. Upon arrival to the emergency department his capnometry now is reading in the 80s. Patient tried his rescue inhaler at home prior to call and life squad. - Related Data Home Medications Medication Instructions Recorded Confirmed Amiodarone [Cordarone] 200 mg PO DAILY 04/03/15 09/22/17 Atorvastatin Calcium [Lipitor] 80 mg PO DAILY 04/03/15 09/22/17 Fluticasone Propionate Nasal 50 mcg NS DAILY 04/03/15 09/22/17 [Flonase] Multivitamin/Ferrous Sulfate 1 tab PO DAILY 04/03/15 09/22/17 [One-Daily Eycqv-Bhd-Tdud Tab] Fluticasone/Salmeterol [Advair Hfa 1 puff IH BID 04/04/16 09/22/17 45-21 Mcg Inhaler] Potassium Chloride [Klor-Con 10] 20 meq PO DAILY 04/04/16 09/22/17 Warfarin [Coumadin] 7.5 mg PO Q2D 06/09/16 09/22/17 Oxygen 4 l IH AD 11/11/16 09/22/17 Furosemide [Lasix] 40 mg PO BID 07/11/17 09/22/17 Previous Rx's Medication Instructions Recorded Albuterol Neb [Proventil Neb] 2.5 mg IH Q4HR PRN 14 Days 04/06/16 vial.neb Citalopram [CeleXA] 40 mg PO DAILY #20 tablet 04/27/16 Albuterol Neb [Proventil Neb] 2.5 mg IH Q2H PRN inhsol 07/15/17 Allergies Allergy/AdvReac Type Severity Reaction Status Date / Time No Known Drug Allergies Allergy See Verified 11/11/16 11:28 Comments Review of Systems: Constitutional: [Negative for fever and chills.] HENT: [Negative for congestion.] Eyes: [Negative for discharge.] Respiratory: See history of present illness Cardiovascular: See history of present illness Gastrointestinal: [Negative for nausea, vomiting, abdominal pain and diarrhea.] Endocrine: [Negative for excessive thirst,urination] Genitourinary: [Negative for dysuria and frequency.] Musculoskeletal: [Negative for myalgias and arthralgias.] Skin: [Negative for rash.] Neurological: [Negative for dizziness, localized weakness and headaches.] Psychiatric/Behavioral: [Negative for nervous/anxious.] All other systems reviewed and are negative. Past Medical History - Past Medical History Attestation: Yes The following information was validated with the patient. Source: patient Medical history: Reports: atrial fibrillation, CHF, COPD, other Surgical history: Reports: pacemaker/AICD Psychiatric history: Reports: anxiety, depression - Social History Smoking Status: Former smoker Smokeless Tobacco Status: No Alcohol use: Reports: none Drug use: Reports: none Physical Exam Constitutional: Patient is [alert], morbidly obese and cooperative. . The patient appears symptomatic, nontoxic and mildly ill. HENT: Head: Normocephalic and atraumatic. Right Ear: External ear normal. Left Ear: External ear normal. Nose: Nose normal. Mouth/Throat: Oropharynx is clear and mucous membranes show [good hydration.] Eyes: Conjunctivae and EOM are normal. Pupils are equal, round, and reactive to light. Right eye exhibits [no] discharge. Left eye exhibits [no] discharge. Neck: Trachea is midline, normal range of motion and [phonation normal]. Neck supple. Cardiovascular: [Regular rhythm], S1 normal, S2 normal, normal heart sounds and intact distal pulses. Exam reveals no gallop and no friction rub. No murmur heard. [Capillary refill is brisk.] [Peripheral pulses are 2+] Pulmonary/Chest: Effort increased No stridor. Mild tachypnea. [No] respiratory distress. There are decreased breath sounds. [There no wheezes, no rhonchi, or rales.] Abdominal: Soft. [Bowel sounds are normal]. There exhibits [no] distension and [no] mass. There is no hepatosplenomegaly. There is [no tenderness], [no] CVA tenderness. There is [no rigidity, no rebound, no guarding]. Musculoskeletal: Normal range of motion of uninvolved extremities. There exhibits [no edema]. [ ] Neurological: Patient is alert. Patient displays no atrophy and no tremor. No cranial nerve deficit and exhibits normal muscle tone. Coordination normal grossly. Skin: Skin is warm and dry. No erythema. No rash noted. Psychiatric: Patient has a normal mood and affect. Course Course Narrative: Patient remained remains clinically awake alert despite having significantly elevated PCO2. This appears to be a chronic elevation in his PCO2 status. Chest x-ray reveals evidence of some mild pulmonary edema. Case with Dr. Mireles , hospitalist, who will accept the patient for admission here for diuresis. I have written initial admitting orders for the convenience of the hospitalist who will assume further care upon arrival the patient to the floor Vital Signs Temperature 98.5 F 09/22/17 14:37 Pulse Rate 84 09/22/17 14:37 Respiratory Rate 28 09/22/17 14:37 Blood Pressure 110/64 09/22/17 14:37 O2 Sat by Pulse Oximetry 93 09/22/17 14:37 Temperature 98.5 F 09/22/17 14:37 Pulse Rate 69 09/22/17 15:04 Respiratory Rate 26 09/22/17 15:04 Blood Pressure 122/66 09/22/17 15:04 O2 Sat by Pulse Oximetry 88 09/22/17 15:04 Oxygen Delivery Oxygen Delivery Bipap Shortness of Breath/Dyspnea - Differential Diagnosis Likely: acute exacerbation of chronic obstructive airways disease, congestive heart failure, pneumonia. Unlikely: asthma with exacerbation, pulmonary embolism, pneumothorax, arrhythmia - Lab Data Lab results reviewed: Yes I reviewed the patient's lab results. Result diagrams: 09/22/17 15:11 09/22/17 15:11 Lab Results 09/22/17 09/22/17 09/22/17 Range/Units 14:55 15:11 15:11 WBC 10.4 (4.3-11.1) K/mcL RBC 4.01 L (4.19-5.50) M/mcL Hgb 10.5 L (12.9-16.9) g/dL Hct 38.0 (37.5-50.1) % MCV 94.8 (83.0-100.0) fL MCH 26.2 L (28.0-33.3) pg MCHC 27.6 L (31.6-35.5) g/dL RDW 15.2 H (11.5-14.5) % Plt Count 228 (140-400) K/mcL MPV 9.8 (9.4-12.4) fL Immature Gran % 0.5 (0-4) % Seg Neutrophils % 80.5 % Lymphocytes % 10.3 % Monocytes % 8.0 % Eosinophils % 0.5 % Basophils % 0.2 % Neutrophils # 8.4 (1.6-8.9) K/mcL Lymphocytes # 1.1 (0.6-4.6) K/mcL Monocytes # 0.8 (0.0-1.3) K/mcL Eosinophils # 0.1 (0.0-0.6) K/mcL Basophils # 0.0 (0.0-0.2) K/mcL Hypochromasia Present A (Not Present) PT (9.4-12.1) Seconds INR APTT (26.0-36.0) Seconds ABG pH 7.31 L (7.32-7.45) pH Units ABG pCO2 106 H* (35-45) mmHg ABG pO2 61 L (85-104) mmHg ABG HCO3 53 H (21-27) mEq/L ABG Total CO2 56 H (20-26) mEq/L ABG O2 Saturation 86 L (95-98) % ABG Base Excess 21 H (-2 to 3) mEq/L Sodium (136-145) mEq/L Potassium (3.5-5.1) mEq/L Chloride (98-107) mEq/L Carbon Dioxide (23-29) mEq/L BUN (6-20) mg/dL Creatinine (0.70-1.30) mg/dL Est GFR ( Amer) (> 60) Est GFR (Non-Af Amer) (> 60) BUN/Creatinine Ratio (6-26) Glucose (70-105) mg/dL Calculated Osmolality (280-300) Lactic Acid 1.4 (0.5-2.2) mmol/L Calcium (8.6-10.3) mg/dL Total Bilirubin (0.3-1.0) mg/dL AST (13-39) Units/L ALT (7-52) Units/L Alkaline Phosphatase (34-104) Units/L B-Natriuretic Peptide (Less than 100) pg/mL Serum Total Protein (6.4-8.9) g/dL Albumin (3.5-5.7) g/dL Globulin (2.4-3.5) g/dL Albumin/Globulin Ratio (1.1-2.2) 09/22/17 09/22/17 09/22/17 Range/Units 15:11 15:11 15:11 WBC (4.3-11.1) K/mcL RBC (4.19-5.50) M/mcL Hgb (12.9-16.9) g/dL Hct (37.5-50.1) % MCV (83.0-100.0) fL MCH (28.0-33.3) pg MCHC (31.6-35.5) g/dL RDW (11.5-14.5) % Plt Count (140-400) K/mcL MPV (9.4-12.4) fL Immature Gran % (0-4) % Seg Neutrophils % % Lymphocytes % % Monocytes % % Eosinophils % % Basophils % % Neutrophils # (1.6-8.9) K/mcL Lymphocytes # (0.6-4.6) K/mcL Monocytes # (0.0-1.3) K/mcL Eosinophils # (0.0-0.6) K/mcL Basophils # (0.0-0.2) K/mcL Hypochromasia (Not Present) PT 24.4 H (9.4-12.1) Seconds INR 2.2 APTT 43.0 H (26.0-36.0) Seconds ABG pH (7.32-7.45) pH Units ABG pCO2 (35-45) mmHg ABG pO2 (85-104) mmHg ABG HCO3 (21-27) mEq/L ABG Total CO2 (20-26) mEq/L ABG O2 Saturation (95-98) % ABG Base Excess (-2 to 3) mEq/L Sodium 145 (136-145) mEq/L Potassium 4.4 (3.5-5.1) mEq/L Chloride 91 L (98-107) mEq/L Carbon Dioxide 50 H* (23-29) mEq/L BUN 22 H (6-20) mg/dL Creatinine 0.86 (0.70-1.30) mg/dL Est GFR ( Amer) > 60 (> 60) Est GFR (Non-Af Amer) > 60 (> 60) BUN/Creatinine Ratio 26 (6-26) Glucose 138 H (70-105) mg/dL Calculated Osmolality 306 H (280-300) Lactic Acid (0.5-2.2) mmol/L Calcium 9.1 (8.6-10.3) mg/dL Total Bilirubin 0.6 (0.3-1.0) mg/dL AST 15 (13-39) Units/L ALT 12 (7-52) Units/L Alkaline Phosphatase 96 (34-104) Units/L B-Natriuretic Peptide 37 (Less than 100) pg/mL Serum Total Protein 6.6 (6.4-8.9) g/dL Albumin 3.6 (3.5-5.7) g/dL Globulin 3.0 (2.4-3.5) g/dL Albumin/Globulin Ratio 1.2 (1.1-2.2) - Radiology Data Radiology results reviewed: Yes I reviewed the patient's radiology results. XR/XR chest 1V portable IMPRESSION: Findings compatible with diffuse edema and scattered areas of atelectasis - EKG Data EKG attestation: Yes I reviewed and interpreted this EKG. EKG shows normal: Reports: sinus rhythm, intervals, QRS complexes [place]/QRS: Reports: right axis deviation Interpretation: Reports: no acute changes, nonspecific ST-T wave changes
[2017-09-22 15:24] LABS: Basophils % 0.2 %; Eosinophils # 0.1 K/mcL (0.0-0.6); Eosinophils % 0.5 %; Hemoglobin 10.5 g/dL (12.9-16.9); Immature Granulocytes % 0.5 % (0-4); Lymphocytes # 1.1 K/mcL (0.6-4.6); Lymphocytes % 10.3 %; Mean Corpuscular HGB Conc 27.6 g/dL (31.6-35.5); Mean Corpuscular Hemoglobin 26.2 pg (28.0-33.3); Mean Corpuscular Volume 94.8 fL (83.0-100.0); Mean Platelet Volume 9.8 fL (9.4-12.4); Monocytes # 0.8 K/mcL (0.0-1.3); Neutrophils # 8.4 K/mcL (1.6-8.9); Platelet Count 228 K/mcL (140-400); Red Blood Count 4.01 M/mcL (4.19-5.50); Red Cell Distribution Width 15.2 % (11.5-14.5); Segmented Neutrophils % 80.5 %
[2017-09-22 15:25] LABS: INR 2.2; Prothrombin Time 24.4 Seconds (9.4-12.1)
[2017-09-22 15:40] LABS: Hypochromasia Present (Not Present)
[2017-09-22] MEDS ORDERED: Furosemide 40 MG/4 ML VIAL IVP ONE (15:44)
[2017-09-22 16:08] LABS: Alanine Aminotransferase 12 Units/L (7-52); Albumin 3.6 g/dL (3.5-5.7); Albumin/Globulin Ratio 1.2 (1.1-2.2); Alkaline Phosphatase 96 Units/L (34-104); Aspartate Amino Transferase 15 Units/L (13-39); BUN/Creatinine Ratio 26 (6-26); Bilirubin,Total 0.6 mg/dL (0.3-1.0); Blood Urea Nitrogen 22 mg/dL (6-20); Calcium 9.1 mg/dL (8.6-10.3); Chloride 91 mEq/L (98-107); Glucose 138 mg/dL (70-105); Osmolality,Calculated 306 (280-300); Potassium 4.4 mEq/L (3.5-5.1); Sodium 145 mEq/L (136-145); Total Protein 6.6 g/dL (6.4-8.9); eGFR For African Americans > 60 (> 60); eGFR For Non-African Americans > 60 (> 60)
[2017-09-22 16:17] LABS: Carbon Dioxide 50 mEq/L (23-29)
[2017-09-22] MEDS ORDERED: Naloxone 0.4 MG/ML INJ IVP PRN (16:20)
[2017-09-22] MEDS ORDERED: *HR* Warfarin 7.5 MG TABLET PO SCH (18:00)
[2017-09-22] MEDS: Furosemide 40 MG/4 ML VIAL IVP SCH (19:01)
[2017-09-22] MEDS: Budesonide/Formoterol 80/4.5 MDI IH SCH (21:30)
[2017-09-22] MEDS: Albuterol 2.5 MG/3 ML NEBULIZER IH PRN (21:37)
[2017-09-23 07:48] LABS: BUN/Creatinine Ratio 27 (6-26); Blood Urea Nitrogen 19 mg/dL (6-20); Calcium 9.3 mg/dL (8.6-10.3); Chloride 90 mEq/L (98-107); Glucose 133 mg/dL (70-105); Osmolality,Calculated 298 (280-300); Potassium 4.8 mEq/L (3.5-5.1); Sodium 142 mEq/L (136-145); eGFR For African Americans > 60 (> 60); eGFR For Non-African Americans > 60 (> 60)
[2017-09-23] MEDS: Albuterol 2.5 MG/3 ML NEBULIZER IH PRN (07:55)
[2017-09-23] MEDS: Budesonide/Formoterol 80/4.5 MDI IH SCH ×2 (07:55→20:52)
[2017-09-23] MEDS: *HR* Amiodarone 200 MG TABLET PO SCH (09:09)
[2017-09-23] MEDS: Multivit/Ca/Min/Fe/FA 1 TAB TABLET PO SCH (09:09)
[2017-09-23] MEDS: Furosemide 40 MG/4 ML VIAL IVP SCH ×2 (09:10→17:38)
[2017-09-23] MEDS: Fluticasone Propionate Nasal 50 MCG/SPRAY BOTTLE NS SCH (09:11)
--- NOTE | 2017-09-23 11:58 | Internal Med History&Physical ---
Date of Encounter: 09/23/17 Time of Encounter: 11:54 Assessment and Plan (1) Acute respiratory failure with hypercapnia Current visit: No Status: Acute Patient presented to emergency department in acute distress. ABGs were obtained which shows severe hypercapnia with PCO2 at 106. Patient's oxygenation was with PO2 at 66. PH 7.31. Patient was placed on BiPAP overnight and progressed well. Currently appears relaxed with respiratory effort with O2 at 2 L by cannula and saturations maintaining greater than 90%. We will continue with use of BiPAP at night and when necessary when short of breath. Chest x-ray showed mild pulmonary edema and patient currently is being diuresed. We will continue with current medications and bronchodilators. (2) CHF (congestive heart failure) Current visit: Yes Status: Chronic Patient's admission chest x-ray showed mild pulmonary edema. Patient noted to have +1 pedal edema and a large amount of vascular Blanca to lower legs. Patient currently began diuresis and has improved with respiratory effort overnight. We will continue with current medications. We will repeat labs in a.m. Qualifiers: Heart failure type: unspecified Heart failure chronicity: acute on chronic Qualified Code(s): I50.9 - Heart failure, unspecified (3) Atrial fibrillation Current visit: No Status: Chronic No acute issues. Heart rate remains irregular with controlled rate less than 100 Qualifiers: Atrial fibrillation type: chronic Qualified Code(s): I48.2 - Chronic atrial fibrillation Internal Medicine - H&P: HPI Admitted From: Home Plans for Post Hospital Care: Home History of present illness: Mr. Morales is a 56 year old male who presented to the emergency department with complaints of increasing shortness of breath. Patient has a long history of COPD and CHF Upon arrival to the emergency department his capnometry now is reading in the 80s. Patient was started on nebulizer treatments and given cortical steroids. He was placed on BiPAP and progressed with his respiratory effort. Patient currently appears relaxed and states that he pulses respiratory effort has improved overnight. Patient currently is not using BiPAP states that he was BiPAP on when he feels winded. Respiratory effort appears relaxed at 22/m. Patient continues on oxygen at 2 L with saturation 94%. Past Med Surg Social Fam HX - Past Medical History Medical history: atrial fibrillation, CHF, COPD, other Psychiatric history: anxiety, depression - Past Surgical History Surgical History: pacemaker/AICD - Social History Smoking Status: Former smoker Smokeless Tobacco Status: No Alcohol use: none Drug use: none - Family History Mother Family Member Ethnicity: Non- Living Status: Still Living Hx Family Cardiac Disorders: No Hx Family Respiratory Disorders: No Hx Family Cancer: Yes Hx Family GI Disorders: No Hx Family Endocrine Disorder: No Father Adopted: No Family Member Ethnicity: Non- Living Status: Hx Family Cancer: Yes Hx Family GI Disorders: No Internal Medicine - H&P: Meds Amiodarone [Cordarone] 200 mg PO DAILY 04/03/15 [History] Atorvastatin Calcium [Lipitor] 80 mg PO DAILY 04/03/15 [History] Fluticasone Propionate Nasal [Flonase] 50 mcg NS BID 04/03/15 [History] Multivitamin/Ferrous Sulfate [One-Daily Zyxyo-Mlf-Jnxy Tab] 1 tab PO DAILY 04/03 [History] Fluticasone/Salmeterol [Advair Hfa 45-21 Mcg Inhaler] 1 puff IH BID 04/04/16 [ History] Potassium Chloride [Klor-Con 10] 20 meq PO DAILY 04/04/16 [History] Albuterol Neb [Proventil Neb] 2.5 mg IH Q4HR PRN 14 Days vial.neb 04/06/16 [Rx] Citalopram [CeleXA] 40 mg PO DAILY #20 tablet 04/27/16 [Rx] Warfarin [Coumadin] 7.5 mg PO Q2D 06/09/16 [History] Oxygen 4 l IH AD 11/11/16 [History] Furosemide [Lasix] 40 mg PO BID 07/11/17 [History] Albuterol Neb [Proventil Neb] 2.5 mg IH Q2H PRN inhsol 07/15/17 [Rx] Warfarin [Coumadin] 5 mg PO Q2D 09/22/17 [History] 3 Allergy/AdvReac Type Severity Reaction Status Date / Time No Known Drug Allergies Allergy See Verified 11/11/16 11:28 Comments All Systems PM: A 10-system review of systems was performed and is negative for pertinent findings except as documented above in the HPI. - Constitutional Constitutional: as per HPI, no chills, no fever(s), no night sweats - EENT Eyes: as per HPI, no change in vision, no discharge, no pain, no photophobia Ears: no ear discharge, no ear pain, no tinnitus Nose, mouth and throat: no dysphagia, no nasal discharge, no neck pain, no sore throat - Cardiovascular Cardiovascular ROS IM: as per HPI, no chest pain, no diaphoresis, no dyspnea, no lightheadedness, no palpitations, no syncope - Respiratory Respiratory: as per HPI, no cough, no dyspnea, no wheezing, no excessive phlegm production - Gastrointestinal Gastrointestinal: no abdominal pain, no diarrhea, no hematemesis, no hematochezia, no melena, no nausea, no vomiting - Musculoskeletal Musculoskeletal ROS IM: no numbness, no tingling - Integumentary Integumentary IM: no rash, no unusual bruising - Neurological Neurological ROS: no confusion, no convulsions, no focal weakness, no numbness, no tingling, no tremor(s) - Hematologic/Lymphatic Hematologic/Lymphatic: no easy bruising - Constitutional Vitals: Temp Pulse Resp BP Pulse Ox 97.6 F 81 22 107/71 95 09/23/17 10:45 09/23/17 10:45 09/23/17 10:45 09/23/17 10:45 09/23/17 10:45 General appearance: Present: A&O X 3 - Head Head exam: Present: atraumatic, normocephalic - Eye Eye exam: Present: PERRL, conjuntiva pink, sclera anicteric Pupils: Present: PERRL - Neck Neck exam general surgery: Present: supple, trachea midline. Absent: lymphadenopathy - Respiratory Respiratory exam: Present: CTAB. Absent: accessory muscle use, rales, rhonchi, wheezes Additional comments: Lungs are clear throughout [place] and diminished lower half. No wheezes heard. Respiratory effort appears relaxed at 22 minutes. O2 2 L with saturation 94% - Cardiovascular Cardiovascular exam: Present: RRR, +S1, +S2. Absent: diastolic murmur, gallop, rubs, systolic murmur - GI/Abdominal GI/Abdominal exam: Present: normal bowel sounds, soft, no peritoneal signs. Absent: distended, tenderness - Extremities Exam Extremities exam: Present: warm, radial pulses palpable and symmetrical. Absent : calf tenderness, cyanotic, pedal edema Additional comments: Patient noted to have +1 edema to lower legs and feet. Moderate amount of vascular blanca present. - Neurological Exam Neurological exam: Present: CN II-XII intact, oriented X3, no focal deficits. Absent: pronater drift, facial droop, speech deficit - Skin Skin exam: Present: dry, intact Internal Med - H&P Results - Labs CBC & Chem 7: 09/22/17 15:11 09/23/17 06:26 Labs: BMP 09/23/17 06:26 Sodium 142 Potassium 4.8 Chloride 90 L Carbon Dioxide 52 H* BUN 19 Creatinine 0.71 Glucose 133 H Calcium 9.3 - ABG Interpretation Interpretation: respiratory acidosis - VTE Reasons for not Prescribing Prophylaxis: Not indicated-Anticoagulated or INR therapeutic
[2017-09-23 16:36] LABS: INR 2.4; Prothrombin Time 26.5 Seconds (9.4-12.1)
[2017-09-23] MEDS: *HR* Warfarin 7.5 MG TABLET PO SCH (17:38)
[2017-09-24 05:13] LABS: INR 2.3; Prothrombin Time 25.4 Seconds (9.4-12.1)
[2017-09-24] MEDS: Furosemide 40 MG/4 ML VIAL IVP SCH ×2 (09:10→17:57)
[2017-09-24] MEDS: *HR* Amiodarone 200 MG TABLET PO SCH (09:10)
[2017-09-24] MEDS: Multivit/Ca/Min/Fe/FA 1 TAB TABLET PO SCH (09:10)
[2017-09-24] MEDS: Fluticasone Propionate Nasal 50 MCG/SPRAY BOTTLE NS SCH (09:11)
--- NOTE | 2017-09-24 09:17 | Internal Med Progress Note ---
Date of Encounter: 09/24/17 Time of Encounter: 09:15 - Assessment and plan (1) Acute respiratory failure with hypercapnia Current Visit: No Status: Acute Assessment and plan: Patient appears relaxed denies any shortness of breath. Denies productive cough. Patient continues on oxygen with saturation maintained at greater than 90% on 2 L. Respiratory effort appears improved over the past 2 days after diuresing. We will obtain a chest x-ray for evaluation of patient's pulmonary edema. Patient tolerated BiPAP well last night. We will continue with current medications and bronchodilators. We will discuss with Dr. Mireles (2) CHF (congestive heart failure) Current Visit: Yes Status: Chronic Assessment and plan: Patients respiratory effort appears improved since admission. Lungs are clear throughout [place] but unable to evaluate basis due to distant lung sounds from obesity. We will obtain chest x-ray for evaluation of pulmonary edema. Patient's pedal edema appears to have lessened. Continue with current medications. Qualifiers: Heart failure type: unspecified Heart failure chronicity: acute on chronic Qualified Code(s): I50.9 - Heart failure, unspecified (3) Atrial fibrillation Current Visit: No Status: Chronic Assessment and plan: No acute issues. Heart rate remains irregular but controlled ventricular rate less than 100. Vital signs stable. Qualifiers: Atrial fibrillation type: chronic Qualified Code(s): I48.2 - Chronic atrial fibrillation - Time Spent With Patient less than 15 minutes - Subjective Interval history: Patient prophylaxis currently denies any discomforts and shortness of breath. Patient states that his respiratory effort has improved since admission. Patient states that he or his BiPAP throughout the night and tolerated well. - Constitutional Vitals: Temp Pulse Resp BP Pulse Ox 98.4 F 80 20 129/67 93 09/24/17 04:00 09/24/17 04:00 09/24/17 04:00 09/24/17 04:00 09/24/17 04:00 General appearance: Present: A&O X 3 - Head Head exam: Present: atraumatic, normocephalic - Eye Eye exam: Present: PERRL, conjuntiva pink, sclera anicteric Pupils: Present: PERRL - Neck Neck exam general surgery: Present: supple, trachea midline. Absent: lymphadenopathy - Respiratory Respiratory exam: Present: CTAB. Absent: accessory muscle use, rales, rhonchi, wheezes Additional comments: Lungs clear throughout [place] and diminished throughout lower half. Patient is obese and breath sounds are distant to lower half lung [place]. - Cardiovascular Cardiovascular exam: Present: RRR, +S1, +S2. Absent: diastolic murmur, gallop, rubs, systolic murmur - GI/Abdominal GI/Abdominal exam: Present: normal bowel sounds, soft, no peritoneal signs. Absent: distended, tenderness - Extremities Exam Extremities exam: Present: warm, radial pulses palpable and symmetrical. Absent : calf tenderness, cyanotic, pedal edema Additional comments: Patient has +1 edema to bilateral legs. Noted large amount of vascular [place] - Neurological Exam Neurological exam: Present: CN II-XII intact, oriented X3, no focal deficits. Absent: pronater drift, facial droop, speech deficit - Skin Skin exam: Present: dry, intact Internal Medicine: Result - Labs CBC & Chem 7: 09/22/17 15:11 09/23/17 06:26 - ABG Interpretation ABG results: ABG ABG pH 7.31 pH Units (7.32-7.45) L 09/22/17 14:55 ABG pCO2 106 mmHg (35-45) H* 09/22/17 14:55 ABG pO2 61 mmHg (85-104) L 09/22/17 14:55 ABG O2 Saturation 86 % (95-98) L 09/22/17 14:55 PT/INR, D-dimer PT 25.4 Seconds (9.4-12.1) H 09/24/17 05:00 - VTE Reasons for not Prescribing Prophylaxis: Not indicated-Anticoagulated or INR therapeutic Consult Discharge Plan - Plan Referrals: NONE,PCP [Primary Care Provider] -
[2017-09-24] MEDS: Budesonide/Formoterol 80/4.5 MDI IH SCH ×2 (09:51→21:22)
[2017-09-24] MEDS: Albuterol 2.5 MG/3 ML NEBULIZER IH PRN ×2 (09:53→21:27)
[2017-09-24 11:47] LABS: ABG Base Excess 24 mEq/L (-2 to 3); ABG HCO3 57 mEq/L (21-27); ABG Oxygen Saturation 79 % (95-98); ABG PCO2 113 mmHg (35-45); ABG PH 7.31 pH Units (7.32-7.45); ABG PO2 53 mmHg (85-104); ABG TCO2 60 mEq/L (20-26)
[2017-09-24] MEDS ORDERED: *HR* Warfarin 5 MG TABLET PO SCH (18:00)
[2017-09-25] MEDS: Albuterol 2.5 MG/3 ML NEBULIZER IH PRN ×2 (08:01→20:25)
[2017-09-25 08:11] LABS: INR 2.4; Prothrombin Time 26.2 Seconds (9.4-12.1)
[2017-09-25] MEDS: Multivit/Ca/Min/Fe/FA 1 TAB TABLET PO SCH (08:11)
[2017-09-25] MEDS: *HR* Amiodarone 200 MG TABLET PO SCH (08:11)
[2017-09-25] MEDS: Fluticasone Propionate Nasal 50 MCG/SPRAY BOTTLE NS SCH (08:11)
[2017-09-25] MEDS: Furosemide 40 MG/4 ML VIAL IVP SCH ×2 (08:11→16:29)
[2017-09-25] MEDS: Budesonide/Formoterol 80/4.5 MDI IH SCH ×2 (09:36→22:00)
[2017-09-25 09:53] LABS: Carbon Dioxide > 45 mEq/L (23-29)
[2017-09-25 13:30] LABS: ABG Base Excess 22 mEq/L (-2 to 3); ABG HCO3 52 mEq/L (21-27); ABG Oxygen Saturation 82 % (95-98); ABG PCO2 88 mmHg (35-45); ABG PH 7.38 pH Units (7.32-7.45); ABG PO2 51 mmHg (85-104); ABG TCO2 55 mEq/L (20-26)
--- NOTE | 2017-09-25 14:18 | Internal Med Progress Note ---
Date of Encounter: 09/25/17 Time of Encounter: 14:16 - Assessment and plan (1) Acute respiratory failure with hypercapnia Current Visit: No Status: Acute Assessment and plan: Patient appears relaxed denies any shortness of breath. Denies productive cough. Patient continues on oxygen with saturation maintained at greater than 88%. Patient appears relaxed with his respiratory effort. ABG was obtained which shows respiratory acidosis with compensation. PCO2 today has much improved dropping to 88 and pH of 7.35. Yesterday patient's PCO2 was 113. Patient had follow-up chest x-ray which shows pulmonary edema has resolved since admission. We will continue with current medications. (2) CHF (congestive heart failure) Current Visit: Yes Status: Chronic Assessment and plan: Patients respiratory effort appears improved since admission. Lungs are clear throughout [place] but unable to evaluate basis due to distant lung sounds from obesity. Follow-up chest x-ray showed pulmonary edema has resolved. Patient's pedal edema appears to have lessened. Continue with current medications. Qualifiers: Heart failure type: unspecified Heart failure chronicity: acute on chronic Qualified Code(s): I50.9 - Heart failure, unspecified (3) Atrial fibrillation Current Visit: No Status: Chronic Assessment and plan: No acute issues. Heart rate remains irregular but controlled ventricular rate less than 100. Vital signs stable. Qualifiers: Atrial fibrillation type: chronic Qualified Code(s): I48.2 - Chronic atrial fibrillation - Time Spent With Patient less than 15 minutes - Subjective Interval history: Patient prophylaxis currently denies any discomforts and shortness of breath. Patient states that his respiratory effort has improved since admission. Patient states that he was on his BIPAP for a while this morning, but did not use is overnight. - Constitutional Vitals: Temp Pulse Resp BP Pulse Ox 97 F L 76 18 145/67 92 09/25/17 11:00 09/25/17 11:00 09/25/17 11:00 09/25/17 11:00 09/25/17 11:00 General appearance: Present: A&O X 3 - Head Head exam: Present: atraumatic, normocephalic - Eye Eye exam: Present: PERRL, conjuntiva pink, sclera anicteric Pupils: Present: PERRL - Neck Neck exam general surgery: Present: supple, trachea midline. Absent: lymphadenopathy - Respiratory Respiratory exam: Present: CTAB. Absent: accessory muscle use, rales, rhonchi, wheezes Additional comments: lungs are diminished throughout [place]. No productive cough - Cardiovascular Cardiovascular exam: Present: irregular rhythm, RRR, +S1, +S2. Absent: diastolic murmur, gallop, rubs, systolic murmur - GI/Abdominal GI/Abdominal exam: Present: normal bowel sounds, soft, no peritoneal signs. Absent: distended, tenderness - Extremities Exam Extremities exam: Present: warm, radial pulses palpable and symmetrical. Absent : calf tenderness, cyanotic, pedal edema Additional comments: +1 bilateral lower leg and pedal edema. - Neurological Exam Neurological exam: Present: CN II-XII intact, oriented X3, no focal deficits. Absent: pronater drift, facial droop, speech deficit - Skin Skin exam: Present: dry, intact Internal Medicine: Result - Labs CBC & Chem 7: 09/22/17 15:11 09/23/17 06:26 Labs: BMP 09/23/17 06:26 Carbon Dioxide > 45 H* - ABG Interpretation Interpretation: ABG interpreted by me ABG results: ABG ABG pH 7.38 pH Units (7.32-7.45) 09/25/17 13:22 ABG pCO2 88 mmHg (35-45) H* 09/25/17 13:22 ABG pO2 51 mmHg (85-104) L 09/25/17 13:22 ABG O2 Saturation 82 % (95-98) L 09/25/17 13:22 PT/INR, D-dimer PT 26.2 Seconds (9.4-12.1) H 09/25/17 06:28 Interpretation: metabolic acidosis Additional comments: respiratory acidosis compensated. ABG has improved with pCO2 dropping to 88 from 113 yesterday. - VTE Reasons for not Prescribing Prophylaxis: Not indicated-Anticoagulated or INR therapeutic Consult Discharge Plan - Plan Referrals: NONE,PCP [Primary Care Provider] -
--- NOTE | 2017-09-25 16:48 | Electrocardiograph Report ---
[address] [address] Test Date: 2017-09-22 Pat Name: Stepan Morales Department: 2000 Room: 119 Gender: M Lamination Spinner: : 1960 Requested By: Aly Dominguez Order Number: [id number] Reading MD: Jj Grimes Measurements Intervals [place] Rate: 81 P: 45 OK: 206 QRS: 91 QRSD: 110 T: 42 QT: 383 QTc: 420 Interpretive Statements SINUS RHYTHM BORDERLINE RIGHT AXIS DEVIATION LOW QRS VOLTAGE IN PRECORDIAL LEADS ANTEROSEPTAL MYOCARDIAL INFARCTION, OF INDETERMINATE AGE Electronically Signed On 09-25-2017 16:46:50 EDT by Jj Grimes
[2017-09-25] MEDS: *HR* Warfarin 7.5 MG TABLET PO SCH (17:59)
[2017-09-26 07:29] LABS: ABG Base Excess 22 mEq/L (-2 to 3); ABG HCO3 52 mEq/L (21-27); ABG Oxygen Saturation 92 % (95-98); ABG PCO2 89 mmHg (35-45); ABG PH 7.38 pH Units (7.32-7.45); ABG PO2 70 mmHg (85-104); ABG TCO2 55 mEq/L (20-26)
[2017-09-26 07:46] LABS: INR 2.6; Prothrombin Time 28.7 Seconds (9.4-12.1)
[2017-09-26] MEDS: Furosemide 40 MG/4 ML VIAL IVP SCH (07:54)
[2017-09-26] MEDS: *HR* Amiodarone 200 MG TABLET PO SCH (07:55)
[2017-09-26] MEDS: Fluticasone Propionate Nasal 50 MCG/SPRAY BOTTLE NS SCH (07:57)
[2017-09-26] MEDS: Multivit/Ca/Min/Fe/FA 1 TAB TABLET PO SCH (10:33)
[2017-09-26] MEDS: Budesonide/Formoterol 80/4.5 MDI IH SCH (10:34)
[2017-09-26 11:50] VITALS: BP 132/65
--- NOTE | 2017-09-26 12:02 | Discharge Summary ---
Orders not resulted at time of discharge: Pending orders 09/27/17 04:00 PT/INR [Prothrombin Time INR] [COAG] AM 0400 09/28/17 04:00 PT/INR [Prothrombin Time INR] [COAG] AM 04009/29/17 04:00 PT/INR [Prothrombin Time INR] [COAG] AM 0400 09/30/17 04:00 PT/INR [Prothrombin Time INR] [COAG] AM 0400 10/01/17 04:00 PT/INR [Prothrombin Time INR] [COAG] AM 0400 10/02/17 04:00 PT/INR [Prothrombin Time INR] [COAG] AM 0400 10/03/17 04:00 PT/INR [Prothrombin Time INR] [COAG] AM 040 Date of Encounter: 09/26/17 Time of Encounter: 12:00 - Discharge Diagnosis (1) Acute exacerbation of chronic obstructive airways disease Priority: Primary Status: Acute (2) CHF (congestive heart failure) Priority: Secondary Status: Chronic Qualifiers: Heart failure type: unspecified Heart failure chronicity: acute on chronic Qualified Code(s): I50.9 - Heart failure, unspecified (3) HLD (hyperlipidemia) Priority: Secondary Status: Chronic Qualifiers: Hyperlipidemia type: unspecified Qualified Code(s): E78.5 - Hyperlipidemia , unspecified (4) Atrial fibrillation Priority: Secondary Status: Chronic Qualifiers: Atrial fibrillation type: chronic Qualified Code(s): I48.2 - Chronic atrial fibrillation (5) Shortness of breath Priority: Primary Status: Acute (6) Dyspnea Priority: Secondary Status: Acute Qualifiers: Dyspnea type: unspecified Qualified Code(s): R06.00 - Dyspnea, unspecified (7) Morbid obesity with BMI of 60.0-69.9, adult Priority: Secondary Status: Acute Hospital course: Mr. Morales is a 56 year old male Patient is morbidly obese with increased shortness of breath. He has a CPAP and I guess he spent non-noncompliant with that. But he also was noted to have low CHF with a chest x-ray. But he has been satisfactorily diuresed and chest x -ray is clear CHF. His PCO2 is still elevated but it has improved over what it was. He is alert and oriented and talking. So I think he is stable. He wants to go home. Not sure reported change much. And he has been counseled about weight loss. He states that the only pleasure he is eating therefore he is not interested. Discharge discussed with: patient Time spent discussing smoking cessation with patient: 3 to 10 minutes - Time Spent with Patient Total time spent providing and/or coordinating discharge services: Less than 30 minutes - Discharge Medications Home Medications: Amiodarone [Cordarone] 200 mg PO DAILY 04/03/15 [History] Atorvastatin Calcium [Lipitor] 80 mg PO DAILY 04/03/15 [History] Fluticasone Propionate Nasal [Flonase] 50 mcg NS BID 04/03/15 [History] Multivitamin/Ferrous Sulfate [One-Daily Hjqbo-Zdy-Iryi Tab] 1 tab PO DAILY 04/03 [History] Fluticasone/Salmeterol [Advair Hfa 45-21 Mcg Inhaler] 1 puff IH BID 04/04/16 [ History] Potassium Chloride [Klor-Con 10] 20 meq PO DAILY 04/04/16 [History] Albuterol Neb [Proventil Neb] 2.5 mg IH Q4HR PRN 14 Days vial.neb 04/06/16 [Rx] Citalopram [CeleXA] 40 mg PO DAILY #20 tablet 04/27/16 [Rx] Warfarin [Coumadin] 7.5 mg PO Q2D 06/09/16 [History] Oxygen 4 l IH AD 11/11/16 [History] Furosemide [Lasix] 40 mg PO BID 07/11/17 [History] Albuterol Neb [Proventil Neb] 2.5 mg IH Q2H PRN inhsol 07/15/17 [Rx] Warfarin [Coumadin] 5 mg PO Q2D 09/22/17 [History] Allergies/Adverse Reactions: 3 Allergy/AdvReac Type Severity Reaction Status Date / Time No Known Drug Allergies Allergy See Verified 11/11/16 11:28 Comments Date of admission: 09/22/17 16:30 Primary care physician: PCP NONE Consults: 09/22/17 18:16 Consult to Master Carpenter [CONS] Stat Reason for SW Consult: potential for f/u care at d/c Discharging clinician: Blaise Mireles Anticipated date of discharge: 09/26/17 - Constitutional Vitals: Temp Pulse Resp BP Pulse Ox 98.5 F 81 18 132/65 92 09/26/17 11:46 09/26/17 11:46 09/26/17 11:46 09/26/17 11:46 09/26/17 11:46 General appearance: Present: A&O X 3 - Head Head exam: Present: atraumatic, normal inspection, normocephalic - Neck Neck exam general surgery: Present: supple, trachea midline. Absent: lymphadenopathy - Respiratory Respiratory exam: Present: decreased breath sounds, CTAB, prolonged expiratory phase. Absent: accessory muscle use, rales, rhonchi, wheezes - Cardiovascular Cardiovascular exam: Present: RRR, +S1, +S2. Absent: diastolic murmur, gallop, rubs, systolic murmur - Expanded Lower Extremities Exam Lower Leg exam: Present: swelling (Edema is minimal. But he has increased pigmentation in the anterior aspect of bilateral tibial areas. This seems to be chronic and old. Currently there is there are no open or weeping lesions.) - Patient Status Disposition: Home, Self-Care Condition: Fair Functional capacity at discharge: uses cane/walker Overall status at discharge: patient is back to baseline - Discharge Instructions Instructions: Heart Failure (DC), Acute Respiratory Distress Syndrome (DC), Chronic Obstructive Pulmonary Disease (DC) Follow Up With: NONE,PCP [Primary Care Provider] - - Diet and Activity Activity: ambulate only with your walker, increase activity as tolerated, wear oxygen at all times Diet: advance to your usual diet - VTE Reasons for not Prescribing Prophylaxis: Not indicated-Anticoagulated or INR therapeutic
== END 2017-09-26 18:12 | disposition home or self-care (01) ==
LOC: INPGRE 14:34 → EMEROOGRE 14:34 → INPGRE 17:09
PROVIDERS: ADMIT Internal Medicine; ATTEND Internal Medicine

== ENCOUNTER 2017-12-09 11:48 | Observation (INO) ==
--- NOTE | 2017-12-09 11:51 | Emergency Department Note ---
Disposition Clinical Impression: Hypoxia, Generalized weakness, Frequent falls Disposition: Admitted As Inpatient Condition: Good Referrals: NONE,PCP [Primary Care Provider] - Time of Disposition: 15:57 Fall HPI - General Stated Complaint: fall Time Seen by Provider: 12/09/17 11:51 Source: patient Mode of arrival: EMS Limitations: no limitations Nursing Notes Reviewed: Yes Vital Signs Reviewed: Yes - History of Present Illness HPI Narrative: 57-year-old white male who is morbidly obese presents to emergency department via ambulance after numerous falls at home. He was discharged from the hospital at [facility] yesterday after an exacerbation of COPD and congestive heart failure. He says that he was doing much better prior to his discharge. He says that when he was discharged home he fell getting out of the car. He says that he injured his right leg, but thought that he would be okay. Later in the evening he says that he "got stuck on the commode." He had to have a neighbor help him get off the toilet. This morning he had another fall in which she struck the back of his head and injured his left side. He had no loss of consciousness and has had no headache. He complains of pain in his left chest wall that gets worse with a deep breath. He has not been short of breath. He complains of pain to his left thigh. He was able to ambulate at home in order to get onto the EMS stretcher. He says that he feels weak and that he cannot walk. He says that prior to his admission to the hospital he had some difficulty, but did not have the frequent falls as described. - Related Data Home Medications Medication Instructions Recorded Confirmed Atorvastatin Calcium [Lipitor] 80 mg PO DAILY 04/03/15 12/04/17 Multivitamin/Ferrous Sulfate 1 tab PO DAILY 04/03/15 12/04/17 [One-Daily Zdvbw-Svc-Ionh Tab] Potassium Chloride [Klor-Con 10] 20 meq PO DAILY 04/04/16 12/04/17 Oxygen 4 l IH AD 11/11/16 12/04/17 Amiodarone [Cordarone] 200 mg PO DAILY 10/23/17 12/04/17 Fluticasone Propionate Nasal 1 spr NS BID 10/23/17 12/04/17 [Flonase] Fluticasone/Salmeterol [Advair Hfa 1 puff IH BID 12/04/17 12/04/17 45-21 Mcg Inhaler] Warfarin [Coumadin] 8 mg PO DAILY 12/04/17 12/04/17 Previous Rx's Medication Instructions Recorded Albuterol Neb [Proventil Neb] 2.5 mg IH Q4HR PRN 14 Days 04/06/16 vial.neb Citalopram [CeleXA] 40 mg PO DAILY #20 tablet 04/27/16 Ipratropium/Albuterol Neb [Duoneb] 3 ml IH QIDR 30 Days #1 10/25/17 Furosemide [Lasix] 40 mg PO BID #60 tab 12/08/17 predniSONE [PredniSONE] 10 mg PO DAILY #19 tablet 12/08/17 Allergies Allergy/AdvReac Type Severity Reaction Status Date / Time KAMILA Inhibitors AdvReac Cough Verified 12/02/17 20:54 All systems ED: reviewed and negative except as stated. Constitutional: Denies: fever, chills, weakness, weight change Eyes: Denies: eye pain, eye discharge, vision change ENT ED: Denies: ear pain, throat pain, dental pain, hearing loss, epistaxis, congestion, dysphagia Cardiovascular: Reports: as per HPI, chest pain Respiratory: Denies: cough, dyspnea, wheezes, hemoptysis, stridor Gastrointestinal: Denies: abdominal pain, nausea, vomiting, diarrhea, constipation, hematemesis, melena, hematochezia Genitourinary: Denies: urgency, dysuria, frequency, hematuria Musculoskeletal: Reports: as per HPI, arthralgia Integumentary: Denies: rash, abrasion, lesions Neurological: Denies: headache, weakness, numbness, paresthesias, confusion, abnormal gait, vertigo Psychiatric: Denies: anxiety, depression, suicidal thoughts, homicidal thoughts , auditory hallucinations, visual hallucinations Endocrine: Denies: fatigue Hematological/Lymphatic: Denies: easy bleeding, easy bruising Allergic/Immunologic: Denies: facial swelling, urticaria Fall PMH - Past Medical History Medical history: Reports: atrial fibrillation, CHF, COPD, hyperlipidemia, hypertension, other Surgical history: Reports: pacemaker/AICD Psychiatric history: Reports: anxiety, depression - Social History Smoking Status: Former smoker Alcohol use: Reports: none Drug use: Reports: none Physical Exam - General Limitations: no limitations General appearance: alert, in no apparent distress, obese - Head Head exam: atraumatic, normocephalic, normal inspection - Expanded Head Exam Head exam physicial: Absent: laceration, abrasion, hematoma, raccoon eyes, Ortiz's sign, CSF rhinorrhea, CSF otorrhea - Eye Eye exam: Present: normal appearance, PERRL, EOMI - ENT ENT exam: normal exam, normal oropharynx, mucous membranes moist - Neck Neck exam: Present: normal inspection, full ROM, trachea midline, other (No vertebral spine tender points or step-off palpated). Absent: tenderness - Chest Chest inspection: Present: normal inspection, symmetric chest wall rise, tenderness - Expanded Chest Exam Breast: tenderness: left (Superior and anterior chest wall) - Respiratory Respiratory exam: Present: other (Breath sounds are decreased and coarse bilaterally). Absent: respiratory distress - Cardiovascular Cardiovascular exam: Present: regular rate, normal rhythm, normal heart sounds - Abdominal Exam Abdominal exam: Present: soft, Non-Tender. Absent: tenderness, distention, guarding, rebound, rigidity, mass - Expanded Lower Extremity Exam Hip/Pelvis exam: Present: normal inspection, full ROM Upper leg exam: Present: tenderness, other (Right thigh). Absent: swelling, deformity, crepitus Knee exam: Present: normal inspection, full ROM, tenderness, other (Left knee) Lower leg exam: Present: full ROM, swelling, other (Changes of stasis dermatitis prominent bilaterally). Absent: tenderness Neurovascular/Tendon exam: Present: normal capillary refill. Absent: pulse deficit - Back Exam Back exam: Present: normal inspection, full ROM. Absent: tenderness, vertebral tenderness - Neurological Exam Neurological exam: Present: alert, oriented X3, CN II-XII intact. Absent: motor sensory deficit - Psychiatric Psychiatric exam: Present: normal affect, normal mood - Skin Skin exam: Present: warm, dry, intact, normal color Course Course Narrative: The patient remained stable without further complaint while in the department. Spoke with Dr. De La Garza at 1550 and the patient will be admitted here in [place]. Vital Signs Temperature 98.9 F 12/09/17 11:53 Pulse Rate 89 12/09/17 11:53 Respiratory Rate 20 12/09/17 11:53 Blood Pressure 102/69 12/09/17 11:53 O2 Sat by Pulse Oximetry 90 12/09/17 11:53 Temperature 98.9 F 12/09/17 11:53 Pulse Rate 75 12/09/17 15:52 Respiratory Rate 20 12/09/17 11:53 Blood Pressure 127/77 12/09/17 15:52 O2 Sat by Pulse Oximetry 95 12/09/17 15:52 Oxygen Delivery Oxygen Delivery Nasal Cannula Fall - Lab Data Lab results reviewed: Yes I reviewed the patient's lab results. Result diagrams: 12/09/17 13:00 12/09/17 13:00 Lab Results 12/09/17 12/09/17 12/09/17 Range/Units 12:30 13:00 13:00 WBC 11.0 (4.3-11.1) K/mcL RBC 4.39 (4.19-5.50) M/mcL Hgb 11.1 L (12.9-16.9) g/dL Hct 38.5 (37.5-50.1) % MCV 87.7 (83.0-100.0) fL MCH 25.3 L (28.0-33.3) pg MCHC 28.8 L (31.6-35.5) g/dL RDW 15.5 H (11.5-14.5) % Plt Count 184 (140-400) K/mcL MPV 9.5 (9.4-12.4) fL Immature Gran % 0.4 (0-4) % Seg Neutrophils % 78.5 % Lymphocytes % 9.3 % Monocytes % 9.2 % Eosinophils % 2.5 % Basophils % 0.1 % Neutrophils # 8.7 (1.6-8.9) K/mcL Lymphocytes # 1.0 (0.6-4.6) K/mcL Monocytes # 1.0 (0.0-1.3) K/mcL Eosinophils # 0.3 (0.0-0.6) K/mcL Basophils # 0.0 (0.0-0.2) K/mcL ABG pH ABG pCO2 ABG pO2 ABG HCO3 ABG Total CO2 ABG O2 Saturation ABG Base Excess VBG pH VBG pCO2 VBG pO2 VBG HCO3 Sodium 141 (136-145) mEq/L Potassium 3.7 (3.5-5.1) mEq/L Chloride 91 L (98-107) mEq/L Carbon Dioxide > 45 H* (23-29) mEq/L BUN 24 H (6-20) mg/dL Creatinine 0.83 (0.70-1.30) mg/dL Est GFR ( Amer) > 60 (> 60) Est GFR (Non-Af Amer) > 60 (> 60) BUN/Creatinine Ratio 29 H (6-26) Glucose 111 H (70-105) mg/dL Calculated Osmolality 297 (280-300) Calcium 8.5 L (8.6-10.3) mg/dL Total Bilirubin 0.8 (0.3-1.0) mg/dL AST 17 (13-39) Units/L ALT 16 (7-52) Units/L Alkaline Phosphatase 67 (34-104) Units/L Serum Total Protein 5.5 L (6.4-8.9) g/dL Albumin 3.0 L (3.5-5.7) g/dL Globulin 2.5 (2.4-3.5) g/dL Albumin/Globulin Ratio 1.2 (1.1-2.2) Urine Color Yellow (Yellow) Urine Clarity Clear (Clear) Urine pH 7.5 (5.0-8.0) pH Units Ur Specific [place] 1.020 (1.010-1.025) Urine Protein Negative (Neg-Trace) mg/dL Urine Glucose (UA) Normal (Normal) mg/dL Urine Ketones Negative (Negative) mg/dL Urine Blood Trace-lysed H (Negative) Urine Nitrite Negative (Negative) Urine Bilirubin Negative (Negative) Urine Urobilinogen 4.0 H (Normal) mg/dL Ur Leukocyte Esterase Negative (Negative) Urine Microscopic RBC 0-3 (0-3) per hpf Urine Microscopic WBC 0-3 (0-3) per hpf Ur Squamous Epith Cells Few (None-Few) per lpf Urine Bacteria Few (None-Few) per hpf Ur Culture Indicated? NO (NO) 12/09/17 12/09/17 Range/Units 14:08 14:25 WBC (4.3-11.1) K/mcL RBC (4.19-5.50) M/mcL Hgb (12.9-16.9) g/dL Hct (37.5-50.1) % MCV (83.0-100.0) fL MCH (28.0-33.3) pg MCHC (31.6-35.5) g/dL RDW (11.5-14.5) % Plt Count (140-400) K/mcL MPV (9.4-12.4) fL Immature Gran % (0-4) % Seg Neutrophils % % Lymphocytes % % Monocytes % % Eosinophils % % Basophils % % Neutrophils # (1.6-8.9) K/mcL Lymphocytes # (0.6-4.6) K/mcL Monocytes # (0.0-1.3) K/mcL Eosinophils # (0.0-0.6) K/mcL Basophils # (0.0-0.2) K/mcL ABG pH TNP ABG pCO2 TNP ABG pO2 TNP ABG HCO3 TNP ABG Total CO2 TNP ABG O2 Saturation TNP ABG Base Excess TNP VBG pH TNP VBG pCO2 TNP VBG pO2 TNP VBG HCO3 TNP Sodium (136-145) mEq/L Potassium (3.5-5.1) mEq/L Chloride (98-107) mEq/L Carbon Dioxide (23-29) mEq/L BUN (6-20) mg/dL Creatinine (0.70-1.30) mg/dL Est GFR ( Amer) (> 60) Est GFR (Non-Af Amer) (> 60) BUN/Creatinine Ratio (6-26) Glucose (70-105) mg/dL Calculated Osmolality (280-300) Calcium (8.6-10.3) mg/dL Total Bilirubin (0.3-1.0) mg/dL AST (13-39) Units/L ALT (7-52) Units/L Alkaline Phosphatase (34-104) Units/L Serum Total Protein (6.4-8.9) g/dL Albumin (3.5-5.7) g/dL Globulin (2.4-3.5) g/dL Albumin/Globulin Ratio (1.1-2.2) Urine Color (Yellow) Urine Clarity (Clear) Urine pH (5.0-8.0) pH Units Ur Specific [place] (1.010-1.025) Urine Protein (Neg-Trace) mg/dL Urine Glucose (UA) (Normal) mg/dL Urine Ketones (Negative) mg/dL Urine Blood (Negative) Urine Nitrite (Negative) Urine Bilirubin (Negative) Urine Urobilinogen (Normal) mg/dL Ur Leukocyte Esterase (Negative) Urine Microscopic RBC (0-3) per hpf Urine Microscopic WBC (0-3) per hpf Ur Squamous Epith Cells (None-Few) per lpf Urine Bacteria (None-Few) per hpf Ur Culture Indicated? (NO) - Radiology Data Radiology results reviewed: Yes I reviewed the patient's radiology results. 2 x-rays of the left femur: IMPRESSION: The left femur demonstrates no acute fracture. D/ / 12/09/2017 13:16:08 Jeremy Cee MD / jose Single view of the chest: IMPRESSION: No acute process. Stable cardiomegaly D/ / Marvin Tracy MD / Marvin Tracy MD 3 views of the right knee: IMPRESSION: No acute abnormality of the right knee D/ / Harshal Carvalho MD / Harshal Carvalho MD
[2017-12-09 12:42] LABS: Bilirubin,Urine Negative (Negative); Blood,Urine Trace-lysed (Negative); Clarity,Urine Clear (Clear); Color,Urine Yellow (Yellow); Glucose,Urine (UA) Normal (Normal); Ketones,Urine Negative (Negative); Leukocyte Esterase,Urine Negative (Negative); Nitrite,Urine Negative (Negative); PH,Urine 7.5 pH Units (5.0-8.0); Protein,Urine Negative (Neg-Trace)
[2017-12-09 13:07] LABS: Basophils % 0.1 %; Eosinophils # 0.3 K/mcL (0.0-0.6); Eosinophils % 2.5 %; Hematocrit 38.5 % (37.5-50.1); Hemoglobin 11.1 g/dL (12.9-16.9); Immature Granulocytes % 0.4 % (0-4); Lymphocytes % 9.3 %; Mean Corpuscular HGB Conc 28.8 g/dL (31.6-35.5); Mean Corpuscular Hemoglobin 25.3 pg (28.0-33.3); Mean Corpuscular Volume 87.7 fL (83.0-100.0); Mean Platelet Volume 9.5 fL (9.4-12.4); Monocytes % 9.2 %; Neutrophils # 8.7 K/mcL (1.6-8.9); Platelet Count 184 K/mcL (140-400); Red Blood Count 4.39 M/mcL (4.19-5.50); Red Cell Distribution Width 15.5 % (11.5-14.5); Segmented Neutrophils % 78.5 %
[2017-12-09 13:12] LABS: RBC,Urine 0-3 per hpf (0-3); Squamous Epithelial Cell,Urine Few per lpf (None-Few); WBC,Urine 0-3 per hpf (0-3)
[2017-12-09 13:13] LABS: Bacteria,Urine Few per hpf (None-Few)
[2017-12-09 13:31] LABS: Alanine Aminotransferase 16 Units/L (7-52); Albumin/Globulin Ratio 1.2 (1.1-2.2); Alkaline Phosphatase 67 Units/L (34-104); Aspartate Amino Transferase 17 Units/L (13-39); BUN/Creatinine Ratio 29 (6-26); Bilirubin,Total 0.8 mg/dL (0.3-1.0); Blood Urea Nitrogen 24 mg/dL (6-20); Calcium 8.5 mg/dL (8.6-10.3); Chloride 91 mEq/L (98-107); Globulin 2.5 g/dL (2.4-3.5); Glucose 111 mg/dL (70-105); Osmolality,Calculated 297 (280-300); Potassium 3.7 mEq/L (3.5-5.1); Sodium 141 mEq/L (136-145); Total Protein 5.5 g/dL (6.4-8.9); eGFR For African Americans > 60 (> 60); eGFR For Non-African Americans > 60 (> 60)
[2017-12-09 13:40] LABS: Carbon Dioxide > 45 mEq/L (23-29)
[2017-12-09] MEDS ORDERED: Multivit/Ca/Min/Fe/FA 1 TAB TABLET PO SCH (16:14)
[2017-12-09] MEDS ORDERED: Albuterol 2.5 MG/3 ML NEBULIZER IH PRN (16:34)
[2017-12-09] MEDS ORDERED: Naloxone 0.4 MG/ML INJ IVP PRN (16:34)
[2017-12-09] MEDS: Ipratropium/Albuterol Neb 3 ML IH SCH ×2 (17:16→22:55)
[2017-12-09] MEDS: Furosemide 40 MG TABLET PO SCH (17:31)
[2017-12-09] MEDS: predniSONE 20 MG TABLET PO SCH (17:32)
[2017-12-09] MEDS ORDERED: *HR* Warfarin 4 MG TABLET PO SCH (18:00)
[2017-12-09] MEDS ORDERED: NON-FORMULARY MEDICATION 1 EACH EACH (Fluticasone/Salmeterol [Advair Hfa 45-21 Mcg Inhaler IH SCH (21:00)
[2017-12-09] MEDS ORDERED: Budesonide/Formoterol 80/4.5 MDI IH SCH (22:00)
[2017-12-09] MEDS: Fluticasone Propionate Nasal 50 MCG/SPRAY BOTTLE NS SCH (22:54)
[2017-12-09] MEDS: Budesonide/Formoterol 80/4.5 MDI IH SCH (22:55)
[2017-12-10] MEDS: Ipratropium/Albuterol Neb 3 ML IH SCH ×4 (05:50→22:26)
[2017-12-10] MEDS ORDERED: NON-FORMULARY MEDICATION 1 EACH EACH (Potassium Chloride [Klor-Con 10] 20 MEQ) PO SCH (09:00)
[2017-12-10] MEDS ORDERED: [UNRECOGNIZED DRUG - OTHER] PO SCH (09:00)
[2017-12-10] MEDS ORDERED: FERROUS SULFATE PO SCH (09:00)
[2017-12-10] MEDS ORDERED: MULTIVITAMIN PO SCH (09:00)
[2017-12-10] MEDS ORDERED: NON-FORMULARY MEDICATION 1 EACH EACH (Atorvastatin Calcium [Lipitor] 80 MG) PO SCH (09:00)
[2017-12-10] MEDS: Furosemide 40 MG TABLET PO SCH ×2 (09:48→16:09)
[2017-12-10] MEDS: predniSONE 20 MG TABLET PO SCH (09:48)
[2017-12-10] MEDS: Multivit/Ca/Min/Fe/FA 1 TAB TABLET PO SCH (09:48)
[2017-12-10] MEDS: *HR* Amiodarone 200 MG TABLET PO SCH (09:48)
[2017-12-10] MEDS: Budesonide/Formoterol 80/4.5 MDI IH SCH ×2 (09:49→21:25)
[2017-12-10] MEDS: Fluticasone Propionate Nasal 50 MCG/SPRAY BOTTLE NS SCH ×2 (09:49→21:24)
[2017-12-10 11:49] LABS: INR 1.8; Prothrombin Time 20.3 Seconds (9.4-12.1)
--- NOTE | 2017-12-10 13:46 | Internal Med History&Physical ---
Date of Encounter: 12/10/17 Time of Encounter: 13:44 Assessment and Plan (1) Acute respiratory failure with hypercapnia Current visit: Yes Status: Acute Patient continues with dyspnea on exertion. Currently denies any shortness of breath while at rest in bed. Lungs are clear throughout [place] with no wheezes heard. Breath sounds are diminished lower half of lung [place], which could be influenced with his obesity. Denies any productive cough. We will continue with current bronchodilators and medications. We will titrate O2 to maintain oxygen saturation greater than 88 %. Patient with history of hypercapnia and noted serum CO2 greater than 40 on admission. We will have physical therapy and occupational therapy evaluate patient for pulmonary endurance and weakness. Chest x-ray was obtained but no acute process noted. (2) Weakness Current visit: Yes Status: Acute Patient with moderate generalized weakness, experiencing several falls at home after discharge from hospital. Patient currently states that he is unable to ambulate. We will have physical therapy and occupation therapy evaluate patient for his pulmonary endurance and is generalized weakness. No focal neurological deficits noted on exam (3) CHF (congestive heart failure) Current visit: Yes Status: Chronic No acute issues. Recent chest x-ray was nonacute. Vital signs stable. Patient denies any chest discomforts or palpitations. We will continue with current medications. Qualifiers: Heart failure type: diastolic Heart failure chronicity: acute on chronic Qualified Code(s): I50.33 - Acute on chronic diastolic (congestive) heart failure (4) Atrial fibrillation Current visit: Yes Status: Chronic No acute issues. Heart rate remains irregular with controlled rate less than 100 bpm. Patient denies any palpitations or chest discomforts. We will continue with current medications. Qualifiers: Atrial fibrillation type: chronic Qualified Code(s): I48.2 - Chronic atrial fibrillation Internal Medicine - H&P: HPI Admitted From: Home Plans for Post Hospital Care: Home History of present illness: Mr. Morales is a 57 year old male, who is morbidly obese presents to emergency department via ambulance after numerous falls at home. He was discharged from the hospital at [facility] two days ago after an exacerbation of COPD and congestive heart failure. Hospital records show patient had severe hypercapnia Patient has a documented long history of COPD and poor compliance. He says that when he was discharged home he fell getting out of the car and injured his right leg. Later in the evening he says that he "got stuck on the commode", and had to have a neighbor help him get off the toilet. The next morning, he had another fall in which she struck the back of his head and injured his left side. He denied any loss of consciousness. He says that he feels weak and was not able to walk. He says that prior to his admission to the hospital he had some difficulty, but did not have the frequent falls as described. Today patient appears relaxed and denies any current discomforts or shortness of breath while at rest. Patient denies any productive cough. Denies any fever or chills. Patient has brought in his BiPAP from home which currently is at bedside. 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, bells palsy Psychiatric history: anxiety, depression - Past Surgical History Surgical History: pacemaker/AICD - Social History Smoking Status: Former smoker Smokeless Tobacco Status: No Alcohol use: none Drug use: none - Family History Mother Family Member Ethnicity: Non- Living Status: Still Living Hx Family Cardiac Disorders: No Hx Family Respiratory Disorders: No Hx Family Cancer: Yes Hx Family GI Disorders: No Hx Family Endocrine Disorder: No Father Adopted: No Family Member Ethnicity: Non- Living Status: Hx Family Cancer: Yes Hx Family GI Disorders: No Internal Medicine - H&P: Meds Atorvastatin Calcium [Lipitor] 80 mg PO DAILY 04/03/15 [History] Multivitamin/Ferrous Sulfate [One-Daily Mttnt-Wnl-Jzfm Tab] 1 tab PO DAILY 04/03 [History] Potassium Chloride [Klor-Con 10] 20 meq PO DAILY 04/04/16 [History] Albuterol Neb [Proventil Neb] 2.5 mg IH Q4HR PRN 14 Days vial.neb 04/06/16 [Rx] Citalopram [CeleXA] 40 mg PO DAILY #20 tablet 04/27/16 [Rx] Oxygen 4 l IH AD 11/11/16 [History] Amiodarone [Cordarone] 200 mg PO DAILY 10/23/17 [History] Fluticasone Propionate Nasal [Flonase] 1 spr NS BID 10/23/17 [History] Ipratropium/Albuterol Neb [Duoneb] 3 ml IH QIDR 30 Days #1 10/25/17 [Rx] Fluticasone/Salmeterol [Advair Hfa 45-21 Mcg Inhaler] 1 puff IH BID 12/04/17 [ History] Warfarin [Coumadin] 8 mg PO DAILY 12/04/17 [History] Furosemide [Lasix] 40 mg PO BID #60 tab 12/08/17 [Rx] predniSONE [PredniSONE] 10 mg PO DAILY #19 tablet 12/08/17 [Rx] 3 Allergy/AdvReac Type Severity Reaction Status Date / Time KAMILA Inhibitors AdvReac Cough Verified 12/02/17 20:54 All Systems PM: A 10-system review of systems was performed and is negative for pertinent findings except as documented above in the HPI. - Constitutional Constitutional: as per HPI, no chills, no fever(s), no night sweats - EENT Eyes: as per HPI, no change in vision, no discharge, no pain, no photophobia Ears: no ear discharge, no ear pain, no tinnitus Nose, mouth and throat: no dysphagia, no nasal discharge, no neck pain, no sore throat - Cardiovascular Cardiovascular ROS IM: as per HPI, no chest pain, no diaphoresis, no dyspnea, no lightheadedness, no palpitations, no syncope - Respiratory Respiratory: as per HPI, no cough, no dyspnea, no wheezing, no excessive phlegm production - Gastrointestinal Gastrointestinal: no abdominal pain, no diarrhea, no hematemesis, no hematochezia, no melena, no nausea, no vomiting - Musculoskeletal Musculoskeletal ROS IM: no numbness, no tingling - Integumentary Integumentary IM: no rash, no unusual bruising - Neurological Neurological ROS: no confusion, no convulsions, no focal weakness, no numbness, no tingling, no tremor(s) - Hematologic/Lymphatic Hematologic/Lymphatic: no easy bruising - Constitutional Vitals: Temp Pulse Resp BP Pulse Ox 97.8 F 85 22 132/78 95 12/10/17 08:00 12/10/17 08:00 12/10/17 08:00 12/10/17 08:00 12/10/17 08:00 General appearance: Present: A&O X 3 - Head Head exam: Present: atraumatic, normocephalic - Eye Eye exam: Present: PERRL, conjuntiva pink, sclera anicteric Pupils: Present: PERRL - Neck Neck exam general surgery: Present: supple, trachea midline. Absent: lymphadenopathy - Respiratory Respiratory exam: Present: CTAB. Absent: accessory muscle use, rales, rhonchi, wheezes Additional comments: Patient with clear breath sounds to upper [place], but diminished breath sounds to lower half. Patient does have morbid obesity. Respiratory effort appears relaxed while at rest. - Cardiovascular Cardiovascular exam: Present: RRR, +S1, +S2. Absent: diastolic murmur, gallop, rubs, systolic murmur - GI/Abdominal GI/Abdominal exam: Present: normal bowel sounds, soft, no peritoneal signs. Absent: distended, tenderness - Extremities Exam Extremities exam: Present: warm, radial pulses palpable and symmetrical. Absent : calf tenderness, cyanotic, pedal edema Additional comments: Moderate amount of +2 edema to bilateral legs and feet. Noted vascular [place] to lower legs - Neurological Exam Neurological exam: Present: CN II-XII intact, oriented X3, no focal deficits. Absent: pronater drift, facial droop, speech deficit - Skin Skin exam: Present: dry, intact Internal Med - H&P Results - Labs CBC & Chem 7: 12/09/17 13:00 12/09/17 13:00
[2017-12-10] MEDS: *HR* HYDROcodone/Acet 5/325 mg TABLET PO PRN ×2 (14:37→21:44)
[2017-12-10] MEDS ORDERED: *HR* Warfarin 4 MG TABLET PO ONE (18:00)
[2017-12-10] MEDS ORDERED: Warfarin perPT PO PRN (18:00)
[2017-12-11 03:10] LABS: Bilirubin,Urine Small (Negative); Blood,Urine Large (Negative); Glucose,Urine (UA) Normal (Normal); Ketones,Urine Trace mg/dL (Negative); Leukocyte Esterase,Urine Trace (Negative); Nitrite,Urine Negative (Negative); PH,Urine 7.5 pH Units (5.0-8.0); Protein,Urine 30 mg/dL (Neg-Trace); Urobilinogen,Urine >=8.0 mg/dL (Normal)
[2017-12-11 03:11] LABS: Clarity,Urine Hazy (Clear); Color,Urine Dark Yellow (Yellow)
[2017-12-11 03:12] LABS: Bacteria,Urine Few per hpf (None-Few)
[2017-12-11] MEDS: Ipratropium/Albuterol Neb 3 ML IH SCH ×2 (05:03→10:42)
[2017-12-11] MEDS: *HR* HYDROcodone/Acet 5/325 mg TABLET PO PRN ×3 (05:17→13:52)
[2017-12-11 07:20] LABS: INR 2.1; Prothrombin Time 23.9 Seconds (9.4-12.1)
[2017-12-11] MEDS: *HR* Amiodarone 200 MG TABLET PO SCH (08:48)
[2017-12-11] MEDS: predniSONE 20 MG TABLET PO SCH (08:48)
[2017-12-11] MEDS: Multivit/Ca/Min/Fe/FA 1 TAB TABLET PO SCH (08:48)
[2017-12-11] MEDS: Fluticasone Propionate Nasal 50 MCG/SPRAY BOTTLE NS SCH (08:49)
[2017-12-11] MEDS: Budesonide/Formoterol 80/4.5 MDI IH SCH (08:49)
[2017-12-11] MEDS: Furosemide 40 MG TABLET PO SCH (08:49)
[2017-12-11 11:13] VITALS: BP 127/72
--- NOTE | 2017-12-11 11:26 | Internal Med Progress Note ---
Date of Encounter: 12/11/17 Time of Encounter: 11:22 - Assessment and plan (1) Acute respiratory failure with hypercapnia Current Visit: Yes Status: Acute Assessment and plan: Patient continues to have dyspnea with minimal exertion. Ox sat remains >90%. Lungs remains diminished thoughout. No productive cough and remains afebrile. Not tolerating BIPAP last night. Will have Respiratory evaluate BIPAP settings. Will continue with current meds and bronchodialators. Continue with therapy. Continue with BIPAP at night. (2) Weakness Current Visit: Yes Status: Acute Assessment and plan: Continued generalized weakness. Will continue with therapy. No focal deficits noted. (3) CHF (congestive heart failure) Current Visit: Yes Status: Chronic Assessment and plan: No acute issues. Continued issues with COPD. VSS. Will continue with current meds. Qualifiers: Heart failure type: diastolic Heart failure chronicity: unspecified Qualified Code(s): I50.30 - Unspecified diastolic (congestive) heart failure (4) Atrial fibrillation Current Visit: Yes Status: Chronic Assessment and plan: HR remains irregular with vent rate <100. Qualifiers: Atrial fibrillation type: chronic Qualified Code(s): I48.2 - Chronic atrial fibrillation - Time Spent With Patient less than 15 minutes - Subjective Interval history: Patient appears relaxed. Currently states that his breathing is OK, but that he had issues last night with use of BIPAP and wasn't able to tolerate the current settings. Patient also c/o generalized discomforts secondary to his fall. Patient states that he feels sore to his left shoulder at the pacemaker site, which shows no obvious signs of injury or deformities. Denies any other discomforts. Denies any productive cough or fever/chills. - Constitutional Vitals: Temp Pulse Resp BP Pulse Ox 98.0 F 79 16 127/72 94 12/11/17 11:00 12/11/17 11:00 12/11/17 11:00 12/11/17 11:00 12/11/17 11:00 General appearance: Present: A&O X 3, underweight - Head Head exam: Present: atraumatic, normocephalic - Eye Eye exam: Present: PERRL, conjuntiva pink, sclera anicteric Pupils: Present: PERRL - Neck Neck exam general surgery: Present: supple, trachea midline. Absent: lymphadenopathy - Respiratory Respiratory exam: Present: CTAB. Absent: accessory muscle use, rales, rhonchi, wheezes Additional comments: Resp efforts appears relaxed. Lungs have diminished breath sounds to the lower half of lung [place]. Patient is noted to be morbidity obese with distant breath sounds. No productive cough - Cardiovascular Cardiovascular exam: Present: irregular rhythm, RRR, +S1, +S2. Absent: diastolic murmur, gallop, rubs, systolic murmur - GI/Abdominal GI/Abdominal exam: Present: normal bowel sounds, soft, no peritoneal signs. Absent: distended, tenderness - Extremities Exam Extremities exam: Present: pedal edema, warm, radial pulses palpable and symmetrical. Absent: calf tenderness, cyanotic Additional comments: +2 bilateral leg edema. Vascular blanca - Neurological Exam Neurological exam: Present: CN II-XII intact, oriented X3, no focal deficits. Absent: pronater drift, facial droop, speech deficit - Skin Skin exam: Present: dry, intact Internal Medicine: Result - Labs CBC & Chem 7: 12/09/17 13:00 12/09/17 13:00 Labs: Urine 12/11/17 Range/Units 01:15 Urine Color Dark Yellow (Yellow) Urine Clarity Hazy (Clear) Urine pH 7.5 (5.0-8.0) pH Units Ur Specific [place] 1.020 (1.010-1.025) Urine Protein 30 H (Neg-Trace) mg/dL Urine Glucose (UA) Normal (Normal) mg/dL - ABG Interpretation ABG results: ABG ABG pH TNP 12/09/17 14:08 ABG pCO2 TNP 12/09/17 14:08 ABG pO2 TNP 12/09/17 14:08 ABG O2 Saturation TNP 12/09/17 14:08 PT/INR, D-dimer PT 23.9 Seconds (9.4-12.1) H 12/11/17 06:50 Consult Discharge Plan - Plan Referrals: NONE,PCP [Primary Care Provider] -
[2017-12-11] MEDS ORDERED: *HR* Warfarin 4 MG TABLET PO SCH (18:00)
--- NOTE | 2017-12-12 15:21 | Discharge Summary ---
Date of Encounter: 12/11/17 Time of Encounter: 12:35 - Discharge Diagnosis (1) Frequent falls Priority: Primary Status: Acute Comments: Received insurance company approval for therapies under [facility] status. This was arranged. Hospital course: Please see H&P and progress notes as patient is transferred to [facility] status. - Time Spent with Patient Total time spent providing and/or coordinating discharge services: - Discharge Medications Home Medications: Atorvastatin Calcium [Lipitor] 80 mg PO DAILY 04/03/15 [History] Multivitamin/Ferrous Sulfate [One-Daily Rhnka-Mgz-Dgrf Tab] 1 tab PO DAILY 04/03 [History] Potassium Chloride [Klor-Con 10] 20 meq PO DAILY 04/04/16 [History] Albuterol Neb [Proventil Neb] 2.5 mg IH Q4HR PRN 14 Days vial.neb 04/06/16 [Rx] Citalopram [CeleXA] 40 mg PO DAILY #20 tablet 04/27/16 [Rx] Oxygen 4 l IH AD 11/11/16 [History] Amiodarone [Cordarone] 200 mg PO DAILY 10/23/17 [History] Fluticasone Propionate Nasal [Flonase] 1 spr NS BID 10/23/17 [History] Ipratropium/Albuterol Neb [Duoneb] 3 ml IH QIDR 30 Days #1 10/25/17 [Rx] Fluticasone/Salmeterol [Advair Hfa 45-21 Mcg Inhaler] 1 puff IH BID 12/04/17 [ History] Warfarin [Coumadin] 8 mg PO DAILY 12/04/17 [History] Furosemide [Lasix] 40 mg PO BID #60 tab 12/08/17 [Rx] predniSONE [PredniSONE] 10 mg PO DAILY #19 tablet 12/08/17 [Rx] Allergies/Adverse Reactions: 3 Allergy/AdvReac Type Severity Reaction Status Date / Time KAMILA Inhibitors AdvReac Cough Verified 12/02/17 20:54 Date of admission: 12/09/17 16:13 Primary care physician: PCP NONE Consults: 12/09/17 17:43 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 12/10/17 13:40 Consult to Occupational Therapy [CONS] Routine Comment: Evaluate, develop and implement POC Reason for Consult: frequent falls, weakness, COPD Does patient have active BEDREST order?: No Is patient medically & hemodynamically stable?: Yes Patient assessed for mobility or mobilized this visit?: No Consult to Physical Therapy [CONS] Routine Comment: Evaluate, develop and implement POC Reason for Consult: frequent falls, weakness, COPD Does patient have active BEDREST order?: No Is patient medically & hemodynamically stable?: Yes Patient assessed for mobility or mobilized this visit?: No 12/11/17 12:48 Consult to Physical Medicine/Rehab [CONS] Routine Reason for Consult: Generalized weakness and respiratory failure Time Notified: 12:49 Call Completed: No - Constitutional Vitals: Temp Pulse Resp BP Pulse Ox 98.0 F 79 16 127/72 94 12/11/17 11:00 12/11/17 11:00 12/11/17 11:00 12/11/17 11:00 12/11/17 11:00 General appearance: Present: underweight Exam: Please see H&P and progress note, this date. - Patient Status Disposition: Transfer SNF Condition: Good Functional capacity at discharge: uses cane/walker Overall status at discharge: patient is progressing back to baseline - Discharge Instructions Follow Up With: NONE,PCP [Primary Care Provider] - Forms: ED Satisfaction Letter
== END 2017-12-11 14:34 ==
LOC: EMEROOGRE 11:48 → INPGRE 11:48

== ENCOUNTER 2019-03-22 10:15 | Observation (INO) ==
[2019-03-22] MEDS ORDERED: Ipratropium/Albuterol Neb 3 ML IH ONE (11:00)
[2019-03-22] MEDS ORDERED: methylPREDNISolone 125 MG/2 ML VIAL IVP ONE (11:00)
[2019-03-22 11:10] LABS: ABG Base Excess 21 mEq/L (-2 to 3); ABG HCO3 55 mEq/L (21-27); ABG Oxygen Saturation 93 % (95-98); ABG PCO2 135 mmHg (35-45); ABG PH 7.22 pH Units (7.32-7.45); ABG PO2 91 mmHg (85-104); ABG TCO2 > 50 mEq/L (20-26)
[2019-03-22 11:33] LABS: Basophils % 0.2 %; Eosinophils # 0.1 K/mcL (0.0-0.6); Eosinophils % 1.4 %; Immature Granulocytes % 0.9 % (0-4); Lymphocytes # 0.7 K/mcL (0.6-4.6); Lymphocytes % 8.3 %; Mean Corpuscular HGB Conc 26.5 g/dL (31.6-35.5); Mean Corpuscular Hemoglobin 25.8 pg (28.0-33.3); Mean Corpuscular Volume 97.4 fL (83.0-100.0); Mean Platelet Volume 9.3 fL (9.4-12.4); Monocytes # 0.6 K/mcL (0.0-1.3); Monocytes % 7.3 %; Neutrophils # 6.6 K/mcL (1.6-8.9); Platelet Count 136 K/mcL (140-400); Red Blood Count 3.49 M/mcL (4.19-5.50); Red Cell Distribution Width 17.4 % (11.5-14.5); Segmented Neutrophils % 81.9 %
[2019-03-22 11:42] LABS: Anisocytosis 1+ (Not Present); Hypochromasia Present (Not Present); INR 1.7; Microcytosis Present (Not Present); Platelet Estimate Decreased (Normal); Prothrombin Time 18.9 Seconds (9.4-12.1)
[2019-03-22 11:43] LABS: Macrocytosis Present (Not Present)
[2019-03-22 12:04] LABS: Alanine Aminotransferase 9 Units/L (7-52); Albumin 3.3 g/dL (3.5-5.7); Albumin/Globulin Ratio 1.5 (1.1-2.2); Alkaline Phosphatase 83 Units/L (34-104); Aspartate Amino Transferase 12 Units/L (13-39); BUN/Creatinine Ratio 25 (6-26); Bilirubin,Direct 0.1 mg/dL (0.0-0.2); Bilirubin,Indirect 0.4 mg/dL (0.0-1.2); Bilirubin,Total 0.5 mg/dL (0.3-1.0); Blood Urea Nitrogen 17 mg/dL (6-20); Calcium 8.8 mg/dL (8.6-10.3); Chloride 89 mEq/L (98-107); Globulin 2.2 g/dL (2.4-3.5); Glucose 138 mg/dL (70-105); Osmolality,Calculated 302 (280-300); Sodium 144 mEq/L (136-145); Total Protein 5.5 g/dL (6.4-8.9); Troponin I < 0.03 ng/mL (< 0.04); eGFR For African Americans > 60 (> 60); eGFR For Non-African Americans > 60 (> 60)
[2019-03-22 12:16] LABS: Carbon Dioxide > 45 mEq/L (23-29)
[2019-03-22 13:02] LABS: ABG Base Excess 19 mEq/L (-2 to 3); ABG HCO3 54 mEq/L (21-27); ABG Oxygen Saturation 88 % (95-98); ABG PCO2 126 mmHg (35-45); ABG PH 7.24 pH Units (7.32-7.45); ABG PO2 71 mmHg (85-104); ABG TCO2 > 50 mEq/L (20-26)
[2019-03-22] MEDS ORDERED: Naloxone 0.4 MG/ML INJ IVP PRN ×2 (13:49)
[2019-03-22] MEDS ORDERED: Albuterol 2.5 MG/3 ML NEBULIZER IH PRN (13:49)
[2019-03-22] MEDS ORDERED: Furosemide 40 MG/4 ML VIAL IVP ONE ×2 (13:54→17:26)
[2019-03-22] MEDS ORDERED: Azithromycin 500 MG in D5% in Water 250 ML IVPB SCH (16:00)
[2019-03-22] MEDS: methylPREDNISolone 125 MG/2 ML VIAL IVP SCH (16:40)
[2019-03-22] MEDS: Ipratropium/Albuterol Neb 3 ML IH SCH (17:01)
[2019-03-22 17:12] LABS: ABG Base Excess 25 mEq/L (-2 to 3); ABG HCO3 56 mEq/L (21-27); ABG Oxygen Saturation 94 % (95-98); ABG PCO2 102 mmHg (35-45); ABG PH 7.35 pH Units (7.32-7.45); ABG PO2 82 mmHg (85-104); ABG TCO2 > 50 mEq/L (20-26)
[2019-03-22] MEDS: Furosemide 40 MG TABLET PO SCH (17:28)
[2019-03-22] MEDS ORDERED: *HR* Warfarin 3 MG TABLET PO SCH (18:00)
[2019-03-22] MEDS: rOPINIRole 1 MG TABLET PO SCH (21:34)
[2019-03-22] MEDS: Budesonide/Formoterol 160/4.5 1 PUFF INH IH SCH (21:34)
[2019-03-23] MEDS: Ipratropium/Albuterol Neb 3 ML IH SCH ×3 (00:05→08:22)
[2019-03-23] MEDS: methylPREDNISolone 125 MG/2 ML VIAL IVP SCH ×2 (00:05→09:42)
[2019-03-23] MEDS: Budesonide/Formoterol 160/4.5 1 PUFF INH IH SCH (08:22)
[2019-03-23] MEDS: rOPINIRole 1 MG TABLET PO SCH (08:27)
[2019-03-23] MEDS: Furosemide 40 MG TABLET PO SCH (08:27)
[2019-03-23] MEDS ORDERED: Multivit/Ca/Min/Fe/FA 1 TAB TABLET PO SCH (09:00)
[2019-03-23] MEDS ORDERED: Fluticasone Propionate Nasal 50 MCG/SPRAY BOTTLE NS SCH (09:00)
[2019-03-23] MEDS ORDERED: Diltiazem CD (24hr) 180 MG CAPSULE PO SCH (09:00)
[2019-03-23] MEDS ORDERED: *HR* Amiodarone 200 MG TABLET PO SCH (09:00)
[2019-03-23 09:16] LABS: ABG Base Excess 27 mEq/L (-2 to 3); ABG HCO3 55 mEq/L (21-27); ABG Oxygen Saturation 72 % (95-98); ABG PCO2 83 mmHg (35-45); ABG PH 7.43 pH Units (7.32-7.45); ABG PO2 40 mmHg (85-104); ABG TCO2 > 50 mEq/L (20-26)
[2019-03-23 12:40] VITALS: BP 109/66
[2019-03-23] MEDS ORDERED: Acetaminophen 325 MG TABLET PO PRN (15:09)
== END 2019-03-23 15:43 ==
LOC: EMEROOGRE 10:15 → INPGRE 10:15